=== PATIENT | female | born 1930 | race African-American/Black ===

== ENCOUNTER 2019-03-07 17:38 | Emergency (ER) | payer MEDICARE, OTHER ==
[2019-03-07 18:19] LABS: Base Excess-Venous 0.3 mmol/L (-2.0 to 3.0); Bicarbonate (HCO3v) 26.6 mmol/L (22.0-28.0); CO2 Tension (PvCO2) 48.2 mmHg (40.0-50.0); Chloride 102 mmol/L (98-107); Hemoglobin - Calc 13.1 g/dL (12.0-16.0); Sodium 144 mmol/L (138-145); vO2 Saturation-calc 51.1 % (60.0-85.0)
--- NOTE | 2019-03-07 18:25 | RAD ---
Portable frontal chest radiograph: 03/07/2019 COMPARISON: 01/21/2010 HISTORY: Shortness of breath, dyspnea FINDINGS: There is atherosclerotic calcification of the aortic arch. There is no pneumothorax or pleu ral fluid and no focal consolidation or alveolar edema. There is stable prominence of the cardiac silhouette. IMPRESSION: No acute findings.
[2019-03-07 18:36] LABS: #Eosinphils 0.3 thou/uL (0.0-0.7); #Lymphocytes 2.3 thou/uL (1.20-3.40); #Monocytes 0.9 thou/uL (0.11-0.59); #Neutrophils 3.7 thou/uL (1.40-6.50); %Basophils 0.2 % (0.0-1.0); %Eosinophils 4.7 % (0.0-10.0); %Lymphocytes 31.6 % (21.0-51.0); %Monocytes 12.1 % (0.0-10.0); %Neutrophils 51.5 % (42.0-75.0); Mean Corpuscular HGB CONC 30.1 g/dL (32.0-36.0); Mean Corpuscular Hemoglobin 24.3 pg (27.0-31.0); Mean Corpuscular Volume 80.7 fL (78.0-98.0); Platelet Count 318 thou/uL (130-400); RBC Distribution Width 13.1 % (11.5-14.5); Red Blood Cell (RBC) Count 4.54 mill/uL (4.20-5.40); White Blood Cell (WBC) Count 7.2 thou/uL (4.8-10.8)
[2019-03-07 18:48] LABS: ALT (SGPT) 9 U/L (8-55); AST (SGOT) 12 U/L (5-34); Albumin 3.9 g/dL (3.4-4.8); Alkaline Phosphatase 96 U/L (40-110); Anion Gap 16 mmol/L (10-20); BUN (Urea Nitrogen) 15 mg/dL (9.8-20.1); Bilirubin, Total 0.2 mg/dL (0.2-1.2); Calc. Creatinine Clearance 0 mL/min (70-130); Carbon Dioxide 25 mmol/L (23-31); Chloride 105 mmol/L (98-107); Estimated GFR-MDRD 71; Globulin 4.1 g/dL (2.4-3.5); Glucose 134 mg/dL (83-110); Potassium 4.3 mmol/L (3.5-5.1); Sodium 142 mmol/L (136-145)
== END 2019-03-07 20:47 | disposition home or self-care (01) ==
LOC: ERS 17:38
DX: Z71.1 Person with feared health complaint in whom no diagnosis is made (principal); F03.90 Unspecified dementia, unspecified severity, without behavioral disturbance, psychotic disturbance, mood disturbance, and anxiety; E11.51 Type 2 diabetes mellitus with diabetic peripheral angiopathy without gangrene; K21.9 Gastro-esophageal reflux disease without esophagitis; F31.9 Bipolar disorder, unspecified; F41.9 Anxiety disorder, unspecified; G47.00 Insomnia, unspecified; Z79.899 Other long term (current) drug therapy; Z79.82 Long term (current) use of aspirin
CPT/HCPCS: 36415; 71045; 80053; 82330; 82803; 83880; 84484; 85025; 93005

== ENCOUNTER 2019-06-21 06:25 | Inpatient (IN) | payer MEDICARE, MEDICAID, OTHER ==
[2019-06-21 07:09] LABS: Analyzer IN Cardio ER; Base Excess (BEa) -8.3 mEq/L (-2.0 to +3.0); CO2 Tension 46.8 mmHg (35.0-45.0); Calcium, Ionized 1.05 mmol/L (1.12-1.30); Carboxyhemoglobin (COHb) 0.3 gm% (0.0-3.0); Hemoglobin (Hb) 10.4 g/dL (12.0-16.0); O2 Tension (PaO2), arterial 83.3 mmHg (> 60.0); Potassium - ABG Lab 3.13 mmol/L (3.70-5.30)
[2019-06-21] MEDS ORDERED: Norepinephrine 8 MG/250 ML IVPB SCH (07:15)
[2019-06-21 07:18] LABS: Puncture Site RBA; pH, Arterial 7.23 (7.35-7.45)
[2019-06-21] MEDS ORDERED: Norepinephrine 8 MG/0.9% NS 250 ML ONE (07:30)
[2019-06-21] MEDS ORDERED: Cefepime 2 GM VIAL ONE ×2 (07:34→07:38)
[2019-06-21] MEDS ORDERED: Vancomycin 1 GM/200 ML BAG ONE (07:34)
[2019-06-21] MEDS ORDERED: Fentanyl 20 mcg/ml (100 ml CADD) IV PRN (07:43)
[2019-06-21 07:44] LABS: Hemoglobin 10.4 g/dL (12.0-16.0); Mean Corpuscular HGB CONC 29.4 g/dL (32.0-36.0); Mean Corpuscular Hemoglobin 25.6 pg (27.0-31.0); Platelet Count 277 thou/uL (130-400); RBC Distribution Width 14.7 % (11.5-14.5); Red Blood Cell (RBC) Count 4.08 mill/uL (4.20-5.40); White Blood Cell (WBC) Count 8.4 thou/uL (4.8-10.8)
[2019-06-21] MEDS ORDERED: Fentanyl 100 MCG/2 ML VIAL ONE (08:03)
[2019-06-21 08:05] LABS: ALT (SGPT) 29 U/L (8-55); AST (SGOT) 37 U/L (5-34); Albumin 2.5 g/dL (3.4-4.8); Alkaline Phosphatase 65 U/L (40-110); Anion Gap 14 mmol/L (10-20); BUN (Urea Nitrogen) 15 mg/dL (9.8-20.1); Bilirubin, Total 0.2 mg/dL (0.2-1.2); Calc. Creatinine Clearance 0 mL/min (70-130); Carbon Dioxide 21 mmol/L (23-31); Chloride 122 mmol/L (98-107); Estimated GFR-MDRD 61; Globulin 4.3 g/dL (2.4-3.5); Glucose 170 mg/dL (83-110); Protein, Total 6.8 g/dL (6.0-8.3); Sodium 153 mmol/L (136-145)
[2019-06-21 08:12] LABS: Band 48 % (5-11); Eosinophils 2 % (0-10); Lymphocytes 17 % (21-51); MDiff Complete? YES; Metamyelocyte 2 % (0-0); Monocytes 7 % (0-10); Myelocyte 2 % (0-0); Neutrophil 21 % (42-75); Nucleated RBC 1 % (0); Platelet Morphology Comment Appears Adequate; Reactive Lymphocytes 1 % (0-10); Reflex for Review?? YES; Vacuoles MODERATE
[2019-06-21 08:49] LABS: Bacteria/HPF 4+ HPF (None Seen); Bilirubin Negative (Negative); Blood, Urine Trace (Negative); Clarity Turbid (Clear); Glucose, Urine (Dipstick) Normal (Negative); Leukocyte 500 Leu/uL (Negative); Nitrite 2+ (Negative); Protein, Urine (Dipstick) Negative (Neg-Trace); Squamous Epithelial None Seen HPF (0-3); Urobilinogen Normal mg/dL (Less than 2); WBC/HPF Greater than 50 HPF (0-3)
--- NOTE | 2019-06-21 09:30 | RAD ---
1 VIEW CHEST: Date: 06/21/2019 HISTORY: Respiratory distress. COMPARISON: 03/07/2019. FINDINGS: Endotracheal tube is noted in place with tip overlying T5 vertebral body and above the level of the c brittany. Nasogastric tube is noted in place with tip overlying the distal esophagus. Nasogastric tube s hould be advanced by several centimeters. There are patchy parenchymal as well as interstitial opacit ies seen in left perihilar region which may be related to pneumonia. Small left pleural effusion is p resent. The right lung is clear. Vascular calcifications seen in thoracic aorta. No other interval ch daina. IMPRESSION: 1. Nasogastric tube noted in place; tip overlies distal esophagus. Nasogastric tube should be advanc ed. 2. Endotracheal tube noted in place and above the level of the marco antonio. 3. Left perihilar interstitial and patchy parenchymal opacities, worrisome for pneumonia. Follow-up to resolution is recommended. 4. Small left pleural effusion. POS: [facility]
--- NOTE | 2019-06-21 09:32 | RAD ---
ABDOMEN 1 VIEW: Date: 06/21/2019 HISTORY: Line placement. COMPARISON: None. FINDINGS: A catheter is noted over the right groin and right pelvis with tip projecting over the level of the i nferior aspect of the IVC. Extensive vascular calcifications. IMPRESSION: Right femoral catheter with tip projecting in expected location of the inferior most IVC. POS: [facility]
[2019-06-21] MEDS ORDERED: Ventilator Sedation Protocol 1 EACH FS ONE (10:01)
[2019-06-21] MEDS ORDERED: Dextrose 50% Abboject 50 ML SYRINGE SLOW IVP PRN (10:10)
[2019-06-21] MEDS ORDERED: Dextrose 5% in Water 1,000 ML IV PRN (10:10)
[2019-06-21] MEDS ORDERED: Sodium Chloride 0.9% 1,000 ML IV SCH ×2 (10:15→13:05)
[2019-06-21] MEDS ORDERED: Norepinephrine 8 MG/0.9% NS 250 ML IVPB SCH (10:15)
[2019-06-21] MEDS ORDERED: Propofol BOLUS 1,000 MG/100 ML VIAL IV PRN (10:36)
[2019-06-21] MEDS ORDERED: Propofol 1,000 MG/100 ML VIAL IV PRN (10:36)
[2019-06-21] MEDS ORDERED: fentaNYL Citrate/PF 2,000 MCG in Sodium Chloride 0.9% 60 ML IV SCH (10:36)
[2019-06-21] MEDS ORDERED: Lorazepam 2 MG/ML VIAL SLOW IVP PRN (10:36)
[2019-06-21] MEDS ORDERED: Morphine 2 MG/ML SYRINGE SLOW IVP PRN (10:36)
[2019-06-21] MEDS ORDERED: Fentanyl BOLUS 250 ML IVPB PRN (10:36)
--- NOTE | 2019-06-21 10:52 | HP ---
CHIEF COMPLAINT: Respiratory failure. HISTORY OF PRESENT ILLNESS: The patient is an 88-year-old female, who is a resident of a residential facility. She has a history of peripheral vascular disease, diabetes, and chronic pain syndrome. The patient was picked up by ambulance after she was found to be significantly altered in her mental status. Apparently, the patient is normally awake, alert, and oriented x4 and able to ambulate with a walker. However, today she was noted to have a GCS of 3. Ambulance was activated. On their arrival, the patient's blood pressure was 80/39, pulse 119, and respirations 16. She was intubated in the field. She was started on pressors in the field and had 5 L of IV fluids prior to arrival in the emergency department per the ER records. The patient is currently intubated, sedated, unable to give any additional history. The ER record indicates that she had a fever as well. In the emergency department, the patient has received 125 mL of normal saline per hour along with fentanyl for sedation Levophed for pressor support and vancomycin and cefepime. Her workup thus far is concerning for pneumonia and possible urinary tract infection with severe sepsis. REVIEW OF SYSTEMS: Unobtainable given the patient's intubated status. PAST MEDICAL HISTORY: Obtained from the emergency room record as there are no records from the nursing facility that are locatable at the moment, indicates she has peripheral vascular disease, diabetes mellitus type 2, dementia, chronic pain syndrome, insomnia, generalized weakness, reflux, mobility disturbance, hemorrhoids, hearing loss, and constipation. PAST SURGICAL HISTORY: Tonsillectomy, ectopic . PSYCHIATRIC HISTORY: Shows bipolar disorder, depression, and anxiety. CURRENT MEDICATIONS: Unknown. ALLERGIES: NONE KNOWN. PHYSICAL EXAMINATION: VITAL SIGNS: Most recent set of vital signs; BP was 88/66, pulse 114, respirations 22, temperature is 100.4, and O2 saturation 100% on the ventilator. GENERAL APPEARANCE: The patient is age appropriate. She is sedated, intubated. She has some modest movement of her extremities according to the nurse, who is working with her. She has been moving her extremities at times fairly well. HEENT: She has endotracheal tube in place. HEART: Regular, tachycardic. No murmurs. LUNGS: Clear on the right, diminished with rales more on the left. ABDOMEN: Soft, nondistended, but relatively full feeling is minimally hyperresonant to percussion. Bowel sounds are absent. No palpable masses. EXTREMITIES: There is no cyanosis, clubbing, or edema. She has mottling of the skin peripherally. She is slightly cool to touch. Peripheral pulses are diminished. PSYCHIATRIC: The patient is intubated and sedated. LABORATORY DATA: White count 8.4, hemoglobin 10.4, platelets 277 with 21 neutrophils, 48% bands, 17% lymphocytes. ABG; pH is 7.23, pCO2 is 46.8, and pO2 is 83.3. Sodium 153, potassium is 4.0, chloride 122, CO2 is 21, BUN 15, creatinine is 1.0, glucose is 170, lactic acid is 3.7, calcium is 7.0, AST 37, ALT 29, and alkaline phosphatase 65. Urinalysis shows a turbid urine, specific gravity 1.008, pH of 6, there is trace blood, 2+ nitrites, 500 leukocyte esterase, 7 to 10 red cells, greater than 50 white cells, and 4+ bacteria. Flu screen negative. IMAGING DATA: Chest x-ray shows nasogastric tube in place, tip overlying the distal esophagus and the endotracheal tubes noted in place at the level of marco antonio. There is left perihilar interstitial and patchy parenchymal opacities worrisome for pneumonia and a small left pleural effusion. EKG shows possible junctional tachycardia with right bundle-branch block. IMPRESSION AND PLAN: 1. Severe sepsis with related hypotension. The patient has received significant amount of fluid resuscitation. We will continue with some fluids until her pressure stabilized. Continue her on Levophed. She will be admitted to the ICU. Pulmonary/Critical Care has been consulted and case discussed with them. 2. Pneumonia. The patient appears to have a significant left-sided infiltrate. She has normal white count, but significant left shift and a lymphopenia. This is concerning for possibility of aspiration pneumonia per review by myself and Pulmonary. However, given the current circumstances, a coronavirus test was sent from the emergency department and the patient remains currently in isolation. She will continue with broad-spectrum antibiotics with vancomycin, cefepime, and pulmonary support. 3. Hypernatremia likely due to aggressive initial fluid resuscitation. We will continue to monitor. May ultimately need some hypotonic fluids. 4. Possible urinary tract infection, should be adequately covered with current antibiotic regimen. We will follow up urine cultures. 5. Diabetes mellitus. Accu-Cheks, sliding scale. 6. Disposition. I attempted to call the patient's distribution systems serviceperson, Alena Mantilla. However, I got a voicemail. We will ask the Palliative Care Team to try to reach out to family and help establish goals of care. Job ID: [id number]
[2019-06-21] MEDS: Vasopressin 40 UNIT, Admixture Fee 1 EACH in Sodium Chloride 0.9% 100 ML IV SCH ×2 (11:15→22:59)
[2019-06-21] MEDS ORDERED: EPINEPHrine 1 MG/10 ML Abboject SYRINGE ONE (11:36)
[2019-06-21 11:56] LABS: Actual Bicarbonate (HCO3a) 15.4 mEq/L (22-28); Base Excess (BEa) -12.2 mEq/L (-2.0 to +3.0); CO2 Tension 42.3 mmHg (35.0-45.0); Carboxyhemoglobin (COHb) 0.8 gm% (0.0-3.0); Hemoglobin (Hb) 9.7 g/dL (12.0-16.0); Potassium - ABG Lab 3.97 mmol/L (3.70-5.30)
[2019-06-21 11:57] LABS: ALV-art Gradient 533.125 (0-20); Puncture Site RBA; pH, Arterial 7.18 (7.35-7.45)
[2019-06-21] MEDS ORDERED: methylPREDNISolone Sod Succ/PF 125 MG/2 ML VIAL IVP SCH (12:00)
[2019-06-21] MEDS ORDERED: EPINEPHrine 1 MG, Admixture Fee 1 EACH in Dextrose 5% in Water 250 ML IVPB SCH (12:00)
[2019-06-21] MEDS ORDERED: VANCOMYCIN IVPB PRN (12:03)
--- NOTE | 2019-06-21 12:18 | PDOC.EVN ---
Event Note - Event Note Event Note: I was requested by treating team to provide an opinion re: CPR on this patient. She was admitted earlier today for septic shock and pneumonia. I reviewed the chart. I could not examine the patient because of COVID 19 precautions. She is 88 year old [place] resident, no immediate family. Treating team contacted the number on record, who is her case manager specialist, and was informed there is no MPOA or family. She was picked up at the [place] and intubated in the field. CXR shows pneumonia. She may have a urinary tract infection as well. She was on norepinephrine, now needing a second pressor. Chances of survival are slim to none, even with CPR if initiated. I discussed her case with Dr. Lui and Dr. Bustos. I concur with the treating team not to perform CPR. She remains intubated on ventilatory and pressor support.
--- NOTE | 2019-06-21 13:12 | PDOC.PALCO ---
Palliative Care Consult - Consult Details Requesting Physician: Dr Bustos Reason for Consult: advance directives assistance, other (Assist in location of next of Kin) - Pertinent HPI 88 year old female who is a resident of a halfway facility. Onset of sudden altered mental status, EMS called. Patient base line ambulatory with full orientation. In route she was intubated with initiation of pressors and fluid bolus. Secondary to respiratory presentation treated as R/O Covid 19. Admitted to CCU - Pertinent PMH PVD, DM II, Dementia, Bipolar, Depression - Social History Smoking Status: Unknown if ever smoked Smoking: no tobacco exposure Living Situation: halfway resident - Medications MAR Reviewed: Yes - Allergies Allergies/Adverse Reactions: Allergies Allergy/AdvReac Type Severity Reaction Status Date / Time No Known Allergies Allergy Verified 06/21/19 12:40 - Subjective Intubated, on isolation. - ROS Non Response: due to endotracheal tube, due to mental status - Objective Vital Signs: Vital Signs - Most Recent Temp Pulse Resp BP Pulse Ox 101.1 F H 124 H 23 H 124/50 L 88 L 06/21/19 10:05 06/21/19 10:05 06/21/19 10:05 06/21/19 10:05 06/21/19 10:05 Palliative Performance Scale: 20 - Physical Exam Deviation from normal: Physical exam not performed as Covid 19 ruleout, limiting exposure - Problem List (1) Palliative care encounter Code(s): Z51.5 - ENCOUNTER FOR PALLIATIVE CARE Current Visit: Yes Status: Acute (2) Respiratory failure requiring intubation Code(s): J96.90 - RESPIRATORY FAILURE, UNSP, UNSP W HYPOXIA OR HYPERCAPNIA Current Visit: Yes Status: Acute (3) Sepsis Code(s): A41.9 - SEPSIS, UNSPECIFIED ORGANISM Current Visit: Yes Status: Acute Qualifiers: Sepsis type: Pneumococcus (4) Pneumonia Code(s): J18.9 - PNEUMONIA, UNSPECIFIED ORGANISM Current Visit: Yes Status: Acute - Plan/Recommendations Plan: Patient was placed at a [facility] with assistance by a social worker aide, [phone] Orlando Gregorio Only living known relative as is a sister, in [place], that patient was estranged from was located. Misty [phone] ( number is not accurate for patient sister and unknown last name) Awaiting a phone call back for Karen Gregorio to determine if there are any other resources or contacts she has identified. [45] minutes spent on this encounter with >50% of the time in counseling and coordination of care. Thank you for this very appropriate consult.
[2019-06-21 13:21] LABS: Lactic Acid 8.5 mmol/L (0.5-2.2)
[2019-06-21] MEDS: Dextrose 5% in Water 1,000 ML IV SCH (13:41)
[2019-06-21] MEDS ORDERED: EPINEPHrine 2 MG, Admixture Fee 1 EACH in Dextrose 5% in Water 250 ML IVPB SCH (14:00)
--- NOTE | 2019-06-21 14:39 | CON ---
DATE OF CONSULTATION: 06/21/2019 SERVICE: Pulmonary Medicine. REASON FOR CONSULTATION: ICU patient. HISTORY OF PRESENT ILLNESS: The patient is an 88-year-old female with past medical history significant for cognitive impairment/dementia. She was found down on the morning of presentation in her nursing facility. Ultimately, she was brought to the emergency department. Because she had altered mentation with a GST of 3, and had some respiratory issues, she was put on COVID isolation and intubated to protect her airway. Chest x-ray suggests that she has severe aspiration in the left lung. She cannot provide any additional elements of the history. She appears to have a horrendous septic shock, and is actively attempting to pass away from this condition. From one emergency department to the ICU, she has already received 5 L of fluid in resuscitation. She is maxed on 3 separate pressors, and her blood pressures remained quite marginal. Her saturations on plethysmography are not accurate, and the ABG suggests she is oxygenating adequately, though remains horrendously acidotic, and is failing to compensate appropriately despite the fact that she is on the ventilator. PAST MEDICAL HISTORY: 1. Peripheral vascular disease. 2. Type 2 diabetes mellitus. 3. Dyslipidemia. 4. Dementia. 5. Chronic pain syndrome. 6. Insomnia. 7. Generalized weakness. 8. Gastroesophageal reflux disease. 9. Chronic constipation. 10. History of hemorrhoids. 11. Sensorineural hearing loss. PAST SURGICAL HISTORY: 1. Tonsillectomy. 2. Surgery for ectopic , remote. SOCIAL HISTORY: Negative for current alcohol, tobacco, or illicit drug use. FAMILY HISTORY: Noncontributory. ALLERGIES: NO KNOWN DRUG ALLERGIES. MEDICATIONS: List of her inpatient medications was reviewed and heavily modified. REVIEW OF SYSTEMS: This cannot be obtained as the patient is currently intubated and sedated. PHYSICAL EXAMINATION: VITAL SIGNS: Temperature continues to climb. On presentation, she was at 101, but it has subsequently gone up to 103 degrees Fahrenheit. Pulse 124; blood pressure 124/80; respirations 23; and saturation 94%, on 100% FiO2 and a PEEP of 5. GENERAL: The patient is intubated and sedated. HEENT: Normocephalic, atraumatic. Sclerae are white. Conjunctivae are pink. Oral mucosa is moist without lesions. LUNGS: Extensive rhonchi and crackles are present. It is worse on the left. No prolonged expiratory phase or wheezing is appreciated. HEART: Tachycardic. Regular. ABDOMEN: Distended. Bowel sounds are completely absent. There is no rebound or guarding present. MUSCULOSKELETAL: No cyanosis or clubbing. There is no pitting throughout. She has dry skin. NEUROLOGIC: This is difficult to assess in her current condition. She is not withdrawing from noxious stimuli in all 4 extremities. She is overbreathing the ventilator. She demonstrates a cough with deep suctioning. I have not seen any purposeful activity, but in her current state that does not surprise me. GENITOURINARY: Rich catheter in place. LABORATORY DATA: WBC 8.4, hemoglobin 10.4, and platelets 277,000. Neutrophil count of 21% on top of 48% bands. PH of 7.18, pCO2 of 42, pO2 of 127, corresponding to a saturation of 94%, FiO2 is 100% at that time. Sodium 153, potassium 4.0, bicarb 21, chloride 122, and creatinine 1.04. Liver function studies are essentially unremarkable. Lactate was originally 3.7. Nitrites 2+, white blood cells are very elevated, and bacteria is 4+ in the urine. Influenza A and B are unremarkable. IMAGING DATA: Abdominal x-ray demonstrates femoral line is in the expected region of the inferior vena cava. Nonspecific bowel gas pattern is present. No significant megacolon is noted. Chest x-ray demonstrates no free air under the diaphragm. There is an extensive infiltrate throughout the left lung. Small effusion is likely present on that side as well. Endotracheal tube is in good position. Enteric catheter courses midline below the level of the diaphragm. ASSESSMENT: 1. Acute hypoxic respiratory failure. 2. Septic shock. 3. Urinary tract infection. 4. Healthcare-associated pneumonia, with a dense infiltrate on the left. 5. Acute kidney injury with anuria. 6. Dementia. 7. Hypernatremia. 8. Advanced deconditioning at baseline. DISCUSSION AND PLAN: At this point, the patient is essentially maxed out on 3 separate pressors. We will initiate stress doses of steroids. She is on appropriate antibiotics that should cover both GI, , and lung juan. The likelihood that we are dealing with a COVID is quite low. That being said, in her current state, were she to have a CODE event, chest compressions would be futile. As such, we will not be performing chest compressions moving forward in the event that she has a CODE event. That being said, we will continue to maximize her efforts moving forward to recover her from her acute infection. Multiple ventilator changes have been made, we have adjusted some antibiotics. I believe there may be a gut issue here. That being said, she is completely unstable for pursuing a CT of the abdomen and pelvis. If she does survive the night and come down to 2 separate pressors, we may consider moving forward with a CT of the belly. CRITICAL CARE TIME: 100 minutes. Job ID: [id number]
[2019-06-21] MEDS ORDERED: FLU VACC TS2019-20(65YR UP)/PF 180 MCG/0.5 ML SYRINGE IM ONE (14:45)
[2019-06-21] MEDS ORDERED: Prevnar 13-Val Conj/PF 0.5 ML SYRINGE IM ONE (14:45)
[2019-06-21] MEDS: metroNIDAZOLE 500 MG in Premix Bag 1 BAG IVPB SCH ×2 (15:01→21:16)
[2019-06-21] MEDS: methylPREDNISolone Sod Succ 40 MG VIAL IVP SCH ×2 (17:45→23:00)
[2019-06-21] MEDS: HumaLOG 300 UNITS/3 ML VIAL SC PRN ×2 (18:06→23:27)
[2019-06-21] MEDS: Cefepime 1 GM in Sodium Chloride 0.9% 100 ML IVPB SCH (19:58)
[2019-06-21] MEDS ORDERED: Famotidine/PF 20 mg/2ml Vial SLOW IVP SCH (21:00)
[2019-06-22 04:40] LABS: Phosphorus 2.1 mg/dL (2.3-4.7)
[2019-06-22 04:41] LABS: Anion Gap 18 mmol/L (10-20); BUN (Urea Nitrogen) 21 mg/dL (9.8-20.1); Calc. Creatinine Clearance 40 mL/min (70-130); Calcium 7.6 mg/dL (7.8-10.44); Carbon Dioxide 15 mmol/L (23-31); Chloride 118 mmol/L (98-107); Estimated GFR-MDRD 63; Glucose 157 mg/dL (83-110); Magnesium 1.3 mg/dL (1.6-2.6); Potassium 3.6 mmol/L (3.5-5.1); Sodium 147 mmol/L (136-145)
[2019-06-22 04:44] LABS: Lactic Acid 5.3 mmol/L (0.5-2.2)
[2019-06-22 05:07] LABS: Band 51 % (5-11); Hemoglobin 8.3 g/dL (12.0-16.0); Hypochromia SLIGHT = 6-15 cells (100X) (0-5/hpf); Lymphocytes 16 % (21-51); MDiff Complete? YES; Mean Corpuscular HGB CONC 30.3 g/dL (32.0-36.0); Mean Corpuscular Volume 82.5 fL (78.0-98.0); Mean Platelet Volume 8.7 fL (7.4-10.4); Metamyelocyte 8 % (0-0); Neutrophil 25 % (42-75); Nucleated RBC 1 % (0); Platelet Count 211 thou/uL (130-400); Platelet Morphology Comment Appears Adequate; RBC Distribution Width 14.6 % (11.5-14.5); Red Blood Cell (RBC) Count 3.33 mill/uL (4.20-5.40); White Blood Cell (WBC) Count 16.8 thou/uL (4.8-10.8)
[2019-06-22] MEDS ORDERED: CCU Electrolyte Replacement 1 EACH FS ONE (05:39)
[2019-06-22] MEDS ORDERED: CCU ELECTROLYTE REPLACEMENT PROTOCOL FS PRN (05:41)
[2019-06-22] MEDS ORDERED: Potassium Phosphate 15 MMOL in Sodium Chloride 0.9% 250 ML 250 ML IV PRN (05:41)
[2019-06-22] MEDS ORDERED: Potassium Chloride 40 MEQ in Premix Bag 1 BAG IVPB PRN (05:41)
[2019-06-22] MEDS ORDERED: Potassium Chloride 20 MEQ TAB PO PRN (05:41)
[2019-06-22] MEDS ORDERED: PHOS-NAK 1 PKT PACK PO PRN ×2 (05:41)
[2019-06-22] MEDS ORDERED: Potassium Phosphate 12 MMOL in Sodium Chloride 0.9% 250 ML 250 ML IV PRN (05:41)
[2019-06-22] MEDS ORDERED: Potassium Phosphate 9 MMOL in Sodium Chloride 0.9% 100 ML IVPB PRN (05:41)
[2019-06-22] MEDS ORDERED: Magnesium Oxide 400 MG TAB PO PRN ×2 (05:41)
[2019-06-22] MEDS ORDERED: Magnesium 2 GM/50 ML 2 GM in Premix Bag 1 BAG IVPB PRN (05:41)
[2019-06-22] MEDS ORDERED: Potassium Chloride 40 MEQ in Sodium Chloride 0.9% 250 ML 250 ML IVPB PRN (05:41)
[2019-06-22] MEDS: metroNIDAZOLE 500 MG in Premix Bag 1 BAG IVPB SCH ×3 (05:49→20:30)
[2019-06-22] MEDS: methylPREDNISolone Sod Succ 40 MG VIAL IVP SCH (05:49)
[2019-06-22] MEDS: HumaLOG 300 UNITS/3 ML VIAL SC PRN (05:54)
[2019-06-22 07:35] LABS: Actual Bicarbonate (HCO3a) 16.6 mEq/L (22-28); Base Excess (BEa) -4.9 mEq/L (-2.0 to +3.0); Calcium, Ionized 1.15 mmol/L (1.12-1.30); Carboxyhemoglobin (COHb) 0.2 gm% (0.0-3.0); Hemoglobin (Hb) 9.6 g/dL (12.0-16.0); O2 Tension (PaO2), arterial 91.5 mmHg (> 60.0); Potassium - ABG Lab 3.49 mmol/L (3.70-5.30); pH, Arterial 7.52 (7.35-7.45)
[2019-06-22 07:39] LABS: CO2 Tension 20.8 mmHg (35.0-45.0)
[2019-06-22 07:40] LABS: Puncture Site RRA
[2019-06-22] MEDS ORDERED: Vancomycin 1 GM in Premix Bag 1 BAG IVPB SCH (08:00)
[2019-06-22] MEDS: Cefepime 1 GM in Sodium Chloride 0.9% 100 ML IVPB SCH ×2 (08:35→20:30)
[2019-06-22] MEDS: Enoxaparin Sodium 40 MG/0.4 ML SYRINGE SC SCH (08:36)
[2019-06-22] MEDS ORDERED: Potassium Phosphate 30 MMOL in Sodium Chloride 0.9% 250 ML 250 ML IVPB SCH (09:00)
[2019-06-22] MEDS: Dextrose 5% in Water 1,000 ML IV SCH (09:09)
[2019-06-22] MEDS ORDERED: Magnesium 2 GM/50 ML 2 GM in Premix Bag 1 BAG IVPB SCH (10:15)
--- NOTE | 2019-06-22 13:33 | PDOC.HOSPP ---
- Subjective Encounter Date: 06/22/19 Subjective: Intubated, sedated. - Objective Vital Signs & Weight: Vital Signs (12 hours) Pulse Resp BP Pulse Ox 06/22/19 12:00 12 06/22/19 10:00 13 06/22/19 08:00 17 100 06/22/19 07:41 96 97/62 06/22/19 06:00 17 06/22/19 04:00 17 06/22/19 02:00 17 Weight Admit Weight 145 lb Weight 145 lb Most Recent Monitor Data Heart Rate from ECG 86 NIBP 88/58 NIBP BP-Mean 68 Respiration from ECG 15 SpO2 97 I&O: 06/21/19 06/22/19 06/23/19 06:59 06:59 06:59 Intake Total 1830.8 Output Total 1908 256 Balance -77.2 -256 Result Diagrams: 06/22/19 04:00 06/22/19 04:00 Additional Labs: Accuchecks 06/22/19 06/21/19 06/21/19 11:00 23:16 18:03 POC Glucose 146 H 236 H 329 H Hospitalist ROS - Medication Medications: Active Medications Generic Name Dose Route Start Last Admin Trade Name Freq PRN Reason Stop Dose Admin Enoxaparin Sodium 40 mg 06/22/19 09:00 06/22/19 08:36 Lovenox SC 40 mg 0900 ANKITA Administration Cefepime HCl 1 gm/ Sodium 100 mls @ 200 mls/hr 06/21/19 21:00 06/22/19 08:35 Chloride IVPB 100 mls Q12HR ANKITA Administration Vancomycin HCl 1 gm/ Device 200 mls @ 200 mls/hr 06/22/19 08:00 06/22/19 07: 15 IVPB 200 mls 0800 ANKITA Administration Fentanyl Citrate 2,000 mcg/ 100 mls @ 0 mls/hr 06/21/19 10:36 06/22/19 06:30 Sodium Chloride IV 07/21/19 10:36 100 mls INF ANKITA Administration Protocol Per Protocol Vasopressin 40 unit/ 102 mls @ 0 mls/hr 06/21/19 10:45 06/21/19 22:59 Miscellaneous Medication 1 IV 102 mls each/ Sodium Chloride INF ANKITA Administration Protocol As Directed Dextrose/Water 1,000 mls @ 50 mls/hr 06/21/19 13:15 06/22/19 09:09 D5w IV 1,000 mls .Q20H ANKITA Administration Metronidazole 500 mg/ Device 100 mls @ 100 mls/hr 06/21/19 14:00 06/22/19 05: 49 IVPB 100 mls Q8HR ANKITA Administration Epinephrine 2 mg/ 252 mls @ 0 mls/hr 06/21/19 14:00 06/21/19 14:09 Miscellaneous Medication 1 IVPB 252 mls each/ Dextrose/Water INF ANKITA Administration Protocol Titrate Magnesium Sulfate 2 gm/ Device 50 mls @ 50 mls/hr 06/22/19 05:41 06/22/19 05: 53 IVPB 50 mls ASDIR PRN Administration MAGNESIUM < 1.4 Insulin Human Lispro 0 units 06/21/19 10:10 06/22/19 05:54 Humalog SC 2 unit .MILD SLIDING SCALE PRN Administration Mild Correctional Scale Propofol 1,000 mg 06/21/19 10:36 06/22/19 09:11 Diprivan IV 07/21/19 10:36 1,000 mg INF PRN Administration TO ACHIEVE GOAL RASS Protocol Sodium Chloride 10 ml 06/21/19 09:00 06/22/19 08:36 Flush - Normal Saline IVF 10 ml Q12HR ANKITA Administration - Exam General Appearance: NAD, awake alert Heart: RRR, no murmur, no gallops, no rubs, normal peripheral pulses Respiratory: CTAB, no wheezes, no ronchi, normal chest expansion, no tachypnea, normal percussion, rales (Minimal) Gastrointestinal: soft, non-distended, no palpable masses, no hepatomegaly, no splenomegaly Extremities: no cyanosis, no clubbing, no edema Extremities - other findings: Cool to touch. Less mottled. Psychiatric - other findings: secdated. Hosp A/P (1) Septic shock Code(s): A41.9 - SEPSIS, UNSPECIFIED ORGANISM; R65.21 - SEVERE SEPSIS WITH SEPTIC SHOCK Status: Acute (2) Acute respiratory failure with hypoxia Code(s): J96.01 - ACUTE RESPIRATORY FAILURE WITH HYPOXIA Status: Acute (3) Pneumonia Code(s): J18.9 - PNEUMONIA, UNSPECIFIED ORGANISM Status: Acute (4) Hypernatremia Code(s): E87.0 - HYPEROSMOLALITY AND HYPERNATREMIA Status: Acute (5) UTI (urinary tract infection) Status: Acute (6) Diabetes mellitus Code(s): E11.9 - TYPE 2 DIABETES MELLITUS WITHOUT COMPLICATIONS Status: Acute - Plan Septic Shock: Still requiring pressors, although much decreased. Pneumonia: Continue IV abx with Vanc and Cefepime. Covid test negative. UTI: Ucx growing staph. Unclear if this is culprit, but should be covered with Vanc. Resp Failure: Continues on the vent. Pulmonology managing. Hypernatremia: Improving. Hypomagnesemia: Replete. DM: SSI, glucose monitoring. Dispo: Appreciate PCT. No family contacts. Agree that chest compressions would be futile.
--- NOTE | 2019-06-22 14:20 | PRG ---
DATE OF SERVICE: 06/22/2019 SERVICE: Pulmonary Medicine. INTERVAL HISTORY: The patient has done quite well and survived the night. This has surprised multiple providers. That being said, she is now off two of the three pressors, and she is only on a low dose of norepinephrine at this point. She cannot provide any additional elements of the history, but she is responding appropriately and has been witnessed to move all 4 extremities during sedation holidays. Currently, she is sedated, not interactive. Otherwise, there has been no interval change to her condition. PHYSICAL EXAMINATION: VITAL SIGNS: Afebrile currently with a maximum bladder temperature of 100.4 last overnight. Pulse 86, blood pressure 80/55, respirations 15, saturation 97%, currently on 47% FiO2 and PEEP of 5. GENERAL: The patient is intubated and sedated. HEENT: Normocephalic and atraumatic. Sclerae white. Conjunctivae pink. Oral mucosa is moist without lesions. LUNGS: Decent air entry with rhonchi present. No prolonged expiratory phase or wheezing appreciated. HEART: Normal rate and regular. ABDOMEN: Soft, nontender, nondistended. Bowel sounds positive. MUSCULOSKELETAL: No cyanosis or clubbing. There is no pitting in the bilateral lower extremities. NEUROLOGIC: Grossly nonfocal. LABORATORY DATA: WBC 16.8, hemoglobin 8.3, and platelets 211,000. Band count is 51% on top of 25% neutrophils. PH 7.52, pCO2 of 20.8, pO2 of 91.5. Creatinine 1.00 and gently downtrending, BUN 21, potassium 3.6, sodium has improved from 153 to 147, calcium 7.6. Lactate has improved to 5.3. Magnesium 1.3, phosphorus 2.1. Urinalysis is remarkable for significant pyuria. COVID-19 is unremarkable. Staph aureus is growing in the urine with greater than 100,000 colony-forming units. Blood cultures x2 are unremarkable. Influenza A and B are negative. ASSESSMENT: 1. Acute hypoxic respiratory failure. 2. Septic shock, improving. 3. Urinary tract infection, secondary to Staphylococcus aureus. 4. Healthcare-associated pneumonia with a dense infiltrate on the left. 5. Dementia. 6. Hypernatremia, improving. 7. Advanced deconditioning at baseline. DISCUSSION AND PLAN: We will continue empiric antibiotics for the time being. We will continue D5 water to hopefully gently improve her hypernatremia. Critical Care will follow along, but at this point, we are going to give an additional 24 to 48 hours on the ventilator. Once she clears her inflammatory profile a touch better, we will consider her for extubation, but today is not that day. Critical Care will follow. CRITICAL CARE TIME: 30 minutes. Job ID: [id number]
[2019-06-22] MEDS: Famotidine/PF 20 mg/2ml Vial SLOW IVP SCH (20:32)
[2019-06-23 04:05] LABS: Anion Gap 13 mmol/L (10-20); BUN (Urea Nitrogen) 22 mg/dL (9.8-20.1); Calc. Creatinine Clearance 44 mL/min (70-130); Calcium 8.1 mg/dL (7.8-10.44); Carbon Dioxide 20 mmol/L (23-31); Chloride 116 mmol/L (98-107); Estimated GFR-MDRD 70; Glucose 141 mg/dL (83-110); Potassium 4.8 mmol/L (3.5-5.1); Sodium 144 mmol/L (136-145)
[2019-06-23 04:53] LABS: Band 37 % (5-11); Hemoglobin 8.6 g/dL (12.0-16.0); Lymphocytes 5 % (21-51); MDiff Complete? YES; Mean Corpuscular Hemoglobin 25.5 pg (27.0-31.0); Mean Corpuscular Volume 82.3 fL (78.0-98.0); Mean Platelet Volume 8.5 fL (7.4-10.4); Monocytes 4 % (0-10); Myelocyte 1 % (0-0); Neutrophil 53 % (42-75); Platelet Count 218 thou/uL (130-400); RBC Distribution Width 14.9 % (11.5-14.5); Red Blood Cell (RBC) Count 3.37 mill/uL (4.20-5.40); White Blood Cell (WBC) Count 19.1 thou/uL (4.8-10.8)
[2019-06-23] MEDS: metroNIDAZOLE 500 MG in Premix Bag 1 BAG IVPB SCH ×2 (05:33→13:14)
[2019-06-23] MEDS: Dextrose 5% in Water 1,000 ML IV SCH (05:34)
[2019-06-23] MEDS: Cefepime 1 GM in Sodium Chloride 0.9% 100 ML IVPB SCH ×2 (08:30→20:57)
[2019-06-23] MEDS: Vancomycin 1.5 GRAM/300 ML BAG 1.5 GM in Premix Bag 1 BAG IVPB SCH (09:26)
[2019-06-23] MEDS: Enoxaparin Sodium 40 MG/0.4 ML SYRINGE SC SCH (09:30)
[2019-06-23] MEDS ORDERED: Dextrose 5% in Water 1,000 ML IV SCH (14:44)
--- NOTE | 2019-06-23 14:58 | PRG ---
DATE OF SERVICE: SERVICE: Pulmonary Medicine. INTERVAL HISTORY: The patient is doing really quite well from respiratory standpoint. Kidney function is opened up a little bit. She cannot provide any additional elements of the history. Otherwise, there has been no interval events overnight. She remains a little bit sedated. She is only on 30 of fentanyl, but with a sedation holiday, she is not really waking up too much. She is moving all 4 extremities. PHYSICAL EXAMINATION: VITAL SIGNS: Afebrile, pulse 79, blood pressure 133/83, respirations 14, saturation 100%, currently on 37% FiO2. GENERAL: The patient is awake and alert, in no apparent distress. LUNGS: Good air entry bilaterally without any prolonged expiratory phase or wheezing appreciated. HEART: Normal rate, regular. ABDOMEN: Soft, nontender, and nondistended. Bowel sounds are positive. MUSCULOSKELETAL: No cyanosis or clubbing. There is 1+ pitting throughout. NEUROLOGIC: Grossly nonfocal. LABORATORY DATA: WBC 19.1, hemoglobin 8.6 and gently uptrending, platelets 218, 000. Band counts have improved, 37% on top of 53% neutrophils. Sodium 144, chloride 116. Creatinine 0.92 and gently downtrending. Urine culture is growing Staph aureus, which is sensitive to oxacillin. ASSESSMENT: 1. Acute hypoxic respiratory failure, improving. 2. Septic shock, resolving. 3. Urinary tract infection secondary to methicillin-sensitive Staphylococcus aureus. 4. Healthcare-associated pneumonia with a dense infiltrate on the left. 5. Dementia. 6. Hypernatremia, resolved. 7. Advanced deconditioning at baseline. DISCUSSION AND PLAN: I will repeat a chest x-ray tomorrow morning as well as some laboratories including magnesium and phosphorus. D5 water will be KVO'd. I will initiate feeds. Hopefully, will be ready for extubation in 24 hours, but I would like a touch better definitive control over her volume status. I will give her single dose of Lasix today. Critical care time: 30 minutes. Job ID: [id number] MTDD
--- NOTE | 2019-06-23 15:38 | PDOC.HOSPP ---
- Subjective non-verbal Subjective: Intubated sedated. Does not follow commands. - Objective Vital Signs & Weight: Vital Signs (12 hours) Temp Pulse Resp BP Pulse Ox 06/23/19 15:17 84 141/86 H 06/23/19 14:00 34 H 06/23/19 13:00 79 133/83 06/23/19 12:00 98.0 F 19 06/23/19 10:33 71 133/72 06/23/19 10:00 19 06/23/19 08:00 98.1 F 15 100 06/23/19 07:08 80 127/80 06/23/19 07:00 98.1 F 06/23/19 06:00 16 06/23/19 04:00 97.9 F 13 Weight Admit Weight 145 lb Weight 145 lb Most Recent Monitor Data Heart Rate from ECG 81 NIBP 121/70 NIBP BP-Mean 87 Respiration from ECG 35 SpO2 91 I&O: 06/22/19 06/23/19 06/24/19 06:59 06:59 06:59 Intake Total 1830.8 2393.8 324 Output Total 1908 1096 620 Balance -77.2 1297.8 -296 Result Diagrams: 06/23/19 03:16 06/23/19 03:16 Additional Labs: Accuchecks 06/23/19 06/22/19 06/22/19 12:11 22:14 17:02 POC Glucose 156 H 146 H 157 H Radiology Reviewed by me: Yes Hospitalist ROS - Review of Systems ROS unobtainable: due to endotracheal tube - Medication Medications: Active Medications Generic Name Dose Route Start Last Admin Trade Name Jessica PRN Reason Stop Dose Admin Enoxaparin Sodium 40 mg 06/22/19 09:00 06/23/19 09:30 Lovenox SC 40 mg 0900 ANKITA Administration Famotidine 20 mg 06/22/19 21:00 06/22/19 20:32 Pepcid SLOW IVP 20 mg 2100 ANKITA Administration Norepinephrine Bitartrate 250 mls @ 0 mls/hr 06/21/19 10:15 06/23/19 02:10 Levophed IVPB 250 mls INF ANKITA Administration Protocol Titrate Cefepime HCl 1 gm/ Sodium 100 mls @ 200 mls/hr 06/21/19 21:00 06/23/19 08:30 Chloride IVPB 100 mls Q12HR ANKITA Administration Magnesium Sulfate 2 gm/ Device 50 mls @ 50 mls/hr 06/22/19 05:41 06/22/19 05: 53 IVPB 50 mls ASDIR PRN Administration MAGNESIUM < 1.4 Vancomycin HCl 1.5 gm/ Device 300 mls @ 200 mls/hr 06/23/19 08:00 06/23/19 09 :26 IVPB 300 mls 0800 ANKITA Administration Insulin Human Lispro 0 units 06/21/19 10:10 06/22/19 05:54 Humalog SC 2 unit .MILD SLIDING SCALE PRN Administration Mild Correctional Scale Sodium Chloride 10 ml 06/21/19 09:00 06/23/19 09:31 Flush - Normal Saline IVF 10 ml Q12HR ANKITA Administration - Exam General Appearance: ill appearing Eye: PERRL ENT: normocephalic atraumatic, moist mucosa Neck: supple, symmetric Heart: no murmur, no gallops, no rubs Respiratory: no rales, normal chest expansion, no tachypnea, rhonchi, wheezes Gastrointestinal: soft, non-tender, no guarding, no rigidity Extremities: 1+ LE edema Skin: no rashes Neurological: cranial nerve grossly intact, no focal deficits Neurological - other findings: limited secondary to sedation Musculoskeletal: generalized weakness Psychiatric: not oriented Hosp A/P (1) Acute respiratory failure with hypoxia Code(s): J96.01 - ACUTE RESPIRATORY FAILURE WITH HYPOXIA Status: Acute (2) Diabetes mellitus Code(s): E11.9 - TYPE 2 DIABETES MELLITUS WITHOUT COMPLICATIONS Status: Acute (3) Hypernatremia Code(s): E87.0 - HYPEROSMOLALITY AND HYPERNATREMIA Status: Acute (4) Pneumonia Code(s): J18.9 - PNEUMONIA, UNSPECIFIED ORGANISM Status: Acute (5) Respiratory failure requiring intubation Code(s): J96.90 - RESPIRATORY FAILURE, UNSP, UNSP W HYPOXIA OR HYPERCAPNIA Status: Acute (6) Sepsis Code(s): A41.9 - SEPSIS, UNSPECIFIED ORGANISM Status: Acute Qualifiers: Sepsis type: Pneumococcus (7) Septic shock Code(s): A41.9 - SEPSIS, UNSPECIFIED ORGANISM; R65.21 - SEVERE SEPSIS WITH SEPTIC SHOCK Status: Acute (8) UTI (urinary tract infection) Status: Acute - Plan Plan: intensive care unit pulmonology/critical-care consultation, recommendations appreciated wean vent when able vasoactive medications to maintain mean arterial pressure greater than 65 broad-spectrum antibiotics blood culture urine culture de-escalate to culture and sensitivity as able pain control/sedation continue other home medications as able blood sugar control was short acting insulin G.I. prophylaxis DVT prophylaxis
[2019-06-23] MEDS: Famotidine/PF 20 mg/2ml Vial SLOW IVP SCH (20:59)
[2019-06-24] MEDS: HumaLOG 300 UNITS/3 ML VIAL SC PRN ×4 (04:07→22:16)
[2019-06-24 04:50] LABS: Anion Gap 10 mmol/L (10-20); BUN (Urea Nitrogen) 17 mg/dL (9.8-20.1); Calc. Creatinine Clearance 52 mL/min (70-130); Calcium 8.4 mg/dL (7.8-10.44); Carbon Dioxide 23 mmol/L (23-31); Chloride 118 mmol/L (98-107); Estimated GFR-MDRD 84; Glucose 168 mg/dL (83-110); Magnesium 2.3 mg/dL (1.6-2.6); Potassium 3.4 mmol/L (3.5-5.1); Sodium 148 mmol/L (136-145)
[2019-06-24 04:53] LABS: Phosphorus 1.1 mg/dL (2.3-4.7)
[2019-06-24 05:47] LABS: Band 23 % (5-11); Eosinophils 1 % (0-10); Hypochromia SLIGHT = 6-15 cells (100X) (0-5/hpf); Lymphocytes 13 % (21-51); MDiff Complete? YES; Mean Corpuscular HGB CONC 31.6 g/dL (32.0-36.0); Mean Corpuscular Hemoglobin 25.6 pg (27.0-31.0); Mean Corpuscular Volume 81.1 fL (78.0-98.0); Mean Platelet Volume 8.8 fL (7.4-10.4); Monocytes 3 % (0-10); Neutrophil 60 % (42-75); Platelet Count 225 thou/uL (130-400); RBC Distribution Width 14.6 % (11.5-14.5); Red Blood Cell (RBC) Count 3.14 mill/uL (4.20-5.40); White Blood Cell (WBC) Count 13.3 thou/uL (4.8-10.8)
--- NOTE | 2019-06-24 09:02 | RAD ---
CHEST ONE VIEW: HISTORY: On ventilator. Follow-up evaluation. COMPARISON: 06/21/2019 FINDINGS: Endotracheal tube and nasogastric tube remain in place. The cardiac silhouette is magnified by projec tion. There is increased opacity seen in the retrocardiac region of the left lung base with a mild in crease in left perihilar interstitial densities. The right lung is clear. Vascular calcifications are seen in the thoracic aorta. No other interval change. IMPRESSION: Increased opacity left lung base with mild interstitial prominence left perihilar location. These fin dings may be related to pneumonia or less likely asymmetric pulmonary edema. Continued followup is re commended. POS: OFF
[2019-06-24] MEDS: Vancomycin 1.5 GRAM/300 ML BAG 1.5 GM in Premix Bag 1 BAG IVPB SCH (09:09)
[2019-06-24] MEDS: Enoxaparin Sodium 40 MG/0.4 ML SYRINGE SC SCH (09:14)
[2019-06-24] MEDS: Cefepime 1 GM in Sodium Chloride 0.9% 100 ML IVPB SCH ×2 (09:14→20:38)
--- NOTE | 2019-06-24 12:35 | PRG ---
DATE OF SERVICE: 06/24/2019 SERVICE: Pulmonary Medicine. INTERVAL HISTORY: The patient is doing outstanding from respiratory standpoint. Breathing comfortably. No complaints of chest discomfort, fevers, chills, nausea, or vomiting. Otherwise, there has been no interval change to her condition. She is much more awake and attentive today. She can respond appropriately and is moving all 4 extremities. PHYSICAL EXAMINATION: VITAL SIGNS: Afebrile, pulse 95, blood pressure 120/67, respirations 17, saturation 100%, currently on 31% FiO2 and a PEEP of 5. GENERAL: The patient is awake and alert, in no apparent distress. LUNGS: Wonderful air entry. Dependent crackles are present. There are rhonchi. No prolonged expiratory phase or wheezing is appreciated. HEART: Normal rate, regular. ABDOMEN: Soft, nontender, nondistended. Bowel sounds are positive. MUSCULOSKELETAL: No cyanosis or clubbing. There is diffuse pitting throughout. NEUROLOGIC: Grossly nonfocal. LABORATORY DATA: WBC 13.3, hemoglobin 8.0, and platelets 225,000. Sodium 148, has gently up trended once again. Basic metabolic profile is otherwise unremarkable. Magnesium 2.3, phosphorus 1.1. COVID is negative. Staph aureus is growing in the urine. This is sensitive to methicillin. Blood cultures x2 and influenza A and B are negative. IMAGING: Echocardiogram demonstrates normal ejection fraction, moderate mitral regurgitation, moderate to severe tricuspid regurgitation, and mild pulmonic regurgitation. No obvious valvular abnormalities or vegetations were otherwise identified. ASSESSMENT: 1. Acute hypoxic respiratory failure, resolving. 2. Septic shock, resolved. 3. Urinary tract infection, secondary to MSSA. 4. Healthcare-associated pneumonia with a dense infiltrate on the left. 5. Dementia. 6. Hypernatremia. 7. Advanced deconditioning at baseline. DISCUSSION AND PLAN: Potassium and phosphorus will be replaced today. I will give her an additional dose of Lasix and schedule a daily dose. Because of the phosphorus, I will give her one more day on the mechanical ventilator. Pulmonary/Critical Care will continue to follow along for now. Job ID: [id number]
[2019-06-24] MEDS ORDERED: Potassium Phosphate 30 MMOL in Sodium Chloride 0.9% 250 ML 250 ML IVPB SCH (12:45)
[2019-06-24] MEDS ORDERED: Furosemide 40 MG/4 ML VIAL SLOW IVP SCH (12:45)
[2019-06-24] MEDS: Dextrose 5% in Water 1,000 ML IV SCH (13:19)
--- NOTE | 2019-06-24 16:15 | PDOC.HOSPP ---
- Subjective Encounter Date: 06/24/19 Encounter Time: 15:10 Subjective: f/u for resp failure and HCAP on current Cefepime/Vancomycin and remains on mech ventilation with FIO2 31%. Awakes to name and opens eyes briefly. - Objective Vital Signs & Weight: Vital Signs (12 hours) Temp Pulse Resp Pulse Ox 06/24/19 15:11 110 H 06/24/19 13:07 103 H 06/24/19 10:44 95 06/24/19 10:00 17 06/24/19 08:00 18 96 06/24/19 07:19 93 06/24/19 07:00 99.1 F 06/24/19 06:00 18 Weight Admit Weight 145 lb Weight 145 lb Most Recent Monitor Data Heart Rate from ECG 96 NIBP 120/67 NIBP BP-Mean 84 Respiration from ECG 17 SpO2 100 I&O: 06/23/19 06/24/19 06/25/19 06:59 06:59 06:59 Intake Total 2393.8 1635.7 400 Output Total 1096 1840 300 Balance 1297.8 -204.3 100 Result Diagrams: 06/24/19 04:00 06/24/19 04:00 Additional Labs: Accuchecks 06/24/19 06/24/19 06/23/19 11:42 04:07 22:18 POC Glucose 177 H 171 H 130 H 06/23/19 18:30 POC Glucose 137 H Microbiology 06/21/19 08:21 Urine velazquez catheter Urine Culture - Final Staphylococcus aureus 06/21/19 06:40 Nasal swab Influenza Types A,B Direct EIA - Final 06/21/19 07:52 Venous blood - Right Arm Blood Culture - Preliminary NO GROWTH AT 48 HOURS 06/21/19 07:32 Venous blood - Right Arm Blood Culture - Preliminary NO GROWTH AT 48 HOURS Laboratory Tests 06/21/19 06/21/19 06/21/19 06:37 07:32 07:32 WBC 8.4 Hgb 10.4 L Band Neuts % (Manual) 48 H Sodium 153 H Potassium Phosphorus Magnesium COVID-19 PCR Not Detected 06/22/19 06/22/19 06/22/19 04:00 04:00 04:00 WBC 16.8 H Hgb 8.3 L Band Neuts % (Manual) 51 H Sodium 147 H Potassium 3.6 Phosphorus 2.1 L Magnesium 1.3 L COVID-19 PCR 06/23/19 06/23/19 06/24/19 03:16 03:16 04:00 WBC 19.1 H Hgb 8.6 L Band Neuts % (Manual) 37 H Sodium 144 Potassium 4.8 Phosphorus Magnesium 2.3 COVID-19 PCR 06/24/19 06/24/19 04:00 04:00 WBC Hgb Band Neuts % (Manual) 23 H Sodium Potassium Phosphorus 1.1 L Magnesium COVID-19 PCR Radiology Reviewed by me: Yes (Echo - EF 55-60%, mod MR/ mod-sev TR) EKG Reviewed by me: Yes (Tele - SR) Hospitalist ROS - Medication Medications: Active Medications Generic Name Dose Route Start Last Admin Trade Name Freq PRN Reason Stop Dose Admin Enoxaparin Sodium 40 mg 06/22/19 09:00 06/24/19 09:14 Lovenox SC 40 mg 0900 ANKITA Administration Famotidine 20 mg 06/22/19 21:00 06/23/19 20:59 Pepcid SLOW IVP 20 mg 2100 ANKITA Administration Norepinephrine Bitartrate 250 mls @ 0 mls/hr 06/21/19 10:15 06/23/19 02:10 Levophed IVPB 250 mls INF ANKITA Administration Protocol Titrate Cefepime HCl 1 gm/ Sodium 100 mls @ 200 mls/hr 06/21/19 21:00 06/24/19 09:14 Chloride IVPB 100 mls Q12HR ANKITA Administration Magnesium Sulfate 2 gm/ Device 50 mls @ 50 mls/hr 06/22/19 05:41 06/22/19 05: 53 IVPB 50 mls ASDIR PRN Administration MAGNESIUM < 1.4 Vancomycin HCl 1.5 gm/ Device 300 mls @ 200 mls/hr 06/23/19 08:00 06/24/19 09 :09 IVPB 300 mls 0800 ANKITA Administration Potassium Phosphate 30 mmol/ 260 mls @ 43.333 mls/hr 06/24/19 12:45 06/24/19 13:16 Sodium Chloride IVPB 06/24/19 18:44 260 mls NOW ANKITA Administration Dextrose/Water 1,000 mls @ 50 mls/hr 06/24/19 12:23 06/24/19 13:19 D5w IV 1,000 mls .Q20H ANKITA Administration Insulin Human Lispro 0 units 06/21/19 10:10 06/24/19 13:20 Humalog SC 2 unit .MILD SLIDING SCALE PRN Administration Mild Correctional Scale Miscellaneous Medication 1 pkt 06/22/19 05:41 06/24/19 05:10 Phos-Nak PO 1 pkt TIDPRN PRN Administration FOR PHOS LEVEL 1.0 - 1.8 Potassium Chloride 40 meq 06/22/19 05:41 06/24/19 05:10 K-Dur PO 40 meq ASDIR PRN Administration FOR SERUM K+ 2.5 - 3.5 Sodium Chloride 10 ml 06/21/19 09:00 06/24/19 09:10 Flush - Normal Saline IVF 10 ml Q12HR ANKITA Administration - Exam General - other findings: sedate on mech ventilation Eye: PERRL, anicteric sclera ENT: normocephalic atraumatic, no oropharyngeal lesions ENT - other findings: ETT in place Neck: supple, symmetric, no JVD, no thyromegaly Heart: no gallops, no rubs, normal peripheral pulses Heart - other findings: S1, S2, tachycardic Respiratory - other findings: coarse sounds on L, diminished in bases Gastrointestinal: soft, non-tender, non-distended, normal bowel sounds, no palpable masses Extremities: no cyanosis, no clubbing Skin: normal turgor, no lesions Musculoskeletal: generalized weakness Psychiatric: oriented to person, somnolent, lethargic Hosp A/P (1) Acute respiratory failure with hypoxia Code(s): J96.01 - ACUTE RESPIRATORY FAILURE WITH HYPOXIA Status: Acute Plan: Secondary to #2, continue mech ventilation and wean as clinically indicated (2) Septic shock Code(s): A41.9 - SEPSIS, UNSPECIFIED ORGANISM; R65.21 - SEVERE SEPSIS WITH SEPTIC SHOCK Status: Acute Plan: Improved, continue low-volume IVF's, wean off Levophed gtt (3) HCAP (healthcare-associated pneumonia) Code(s): J18.9 - PNEUMONIA, UNSPECIFIED ORGANISM Status: Acute Plan: Suspected, continue Cefepime/Vancomycin, pulmonary support, mech ventilation (4) Hypernatremia Code(s): E87.0 - HYPEROSMOLALITY AND HYPERNATREMIA Status: Acute Plan: Likely due to dehydration, continue low-volume D5 IVF's, serial Na+ monitoring (5) UTI (urinary tract infection) Status: Acute Plan: Staph spp noted, continue Cefepime IV - Plan continue antibiotics, respiratory therapy, DVT proph w/SCDs Continue critical support Wean mech ventilation as clinically indicated Continue Cefepime/Vancomycin Consider Palliative care consult AM lab: BMP, CBC, Mg++, PO3, Vanc trough PCXR in am
[2019-06-24] MEDS: Famotidine/PF 20 mg/2ml Vial SLOW IVP SCH (20:38)
[2019-06-25] MEDS: HumaLOG 300 UNITS/3 ML VIAL SC PRN ×3 (04:03→17:03)
[2019-06-25 04:41] LABS: Band 7 % (5-11); Eosinophils 1 % (0-10); Hemoglobin 8.2 g/dL (12.0-16.0); Lymphocytes 16 % (21-51); MDiff Complete? YES; Mean Corpuscular Hemoglobin 24.9 pg (27.0-31.0); Mean Corpuscular Volume 80.3 fL (78.0-98.0); Mean Platelet Volume 8.7 fL (7.4-10.4); Monocytes 4 % (0-10); Neutrophil 72 % (42-75); Platelet Count 241 thou/uL (130-400); RBC Distribution Width 14.4 % (11.5-14.5); Target Cells SLIGHT = 2-5 cells (100X) (0-1/hpf); White Blood Cell (WBC) Count 10.2 thou/uL (4.8-10.8)
[2019-06-25 05:07] LABS: Anion Gap 15 mmol/L (10-20); BUN (Urea Nitrogen) 17 mg/dL (9.8-20.1); Calc. Creatinine Clearance 52 mL/min (70-130); Calcium 8.7 mg/dL (7.8-10.44); Carbon Dioxide 21 mmol/L (23-31); Chloride 117 mmol/L (98-107); Estimated GFR-MDRD 84; Glucose 197 mg/dL (83-110); Phosphorus 2.2 mg/dL (2.3-4.7); Potassium 3.7 mmol/L (3.5-5.1); Sodium 149 mmol/L (136-145)
[2019-06-25 08:00] LABS: Vancomycin, Trough 14.9 ug/mL
[2019-06-25] MEDS: Vancomycin 1.5 GRAM/300 ML BAG 1.5 GM in Premix Bag 1 BAG IVPB SCH (08:31)
[2019-06-25] MEDS: Enoxaparin Sodium 40 MG/0.4 ML SYRINGE SC SCH (08:32)
[2019-06-25] MEDS: Cefepime 1 GM in Sodium Chloride 0.9% 100 ML IVPB SCH ×2 (08:33→20:38)
[2019-06-25] MEDS ORDERED: Furosemide 40 MG/4 ML VIAL SLOW IVP SCH (09:00)
[2019-06-25] MEDS ORDERED: Potassium Phosphate 30 MMOL in Sodium Chloride 0.9% 500 ML IVPB SCH (09:45)
[2019-06-25] MEDS ORDERED: Furosemide 20 MG/2 ML VIAL SLOW IVP SCH (09:45)
[2019-06-25] MEDS: Dextrose 5% in Water 1,000 ML IV SCH (11:04)
--- NOTE | 2019-06-25 11:13 | PRG ---
DATE OF SERVICE: 06/25/2019 SERVICE: Pulmonary Medicine. INTERVAL HISTORY: The patient is doing outstanding from respiratory standpoint. She is awake and alert. She appears to be comfortable. She is following some simple commands. Otherwise, there has been no interval change to her condition. Overnight, her oxygen requirements have continued to improve. She did not get any sedation for the past 2 days. She is cool, collected for the most part. PHYSICAL EXAMINATION: VITAL SIGNS: T-max of 100.9. Pulse 95. Blood pressure 108/65, respirations 22, saturation 100%, currently on 30% FiO2 and a PEEP of 5. GENERAL: The patient is awake and alert, in no apparent distress. LUNGS: With good air entry bilaterally. Crackles are present. No prolonged expiratory phase or wheezing is appreciated. HEART: Normal rate regular. ABDOMEN: Soft, nontender, nondistended. Bowel sounds are positive. MUSCULOSKELETAL: No cyanosis or clubbing. There is diffuse pitting throughout. NEUROLOGIC: Grossly nonfocal. LABORATORY DATA: WBC 10.2, hemoglobin 8.2, platelets 241,000. Lymphocytes are 16%, monocytes 4%. Both of these are up trending, band count is precipitously falling down to 7% at this point. Creatinine 0.78. Sodium 149 and gently up trending, chloride 117. Basic metabolic profile is otherwise unremarkable. Phosphorus 2.2. Urine culture is growing MSSA. Blood cultures x2 and influenza are otherwise unremarkable. ASSESSMENT: 1. Acute hypoxic respiratory failure, resolving. 2. Septic shock, resolved. 3. Urinary tract infection secondary to methicillin-sensitive Staphylococcus aureus. 4. Healthcare-associated pneumonia with a dense infiltrate on the left. 5. Dementia. 6. Hypernatremia. 7. Hypophosphatemia. 8. Advanced deconditioning at baseline. DISCUSSION AND PLAN: We will replace the phosphorus and potassium today. I will give her an additional dose of Lasix. We will increase the free water to 60 per hour over the next 24 hours. I will try to keep her net negative while dropping that sodium level. Critical Care will continue to follow along while the patient remains in this location. If she meets criteria, extubation will be considered following a spontaneous breathing trial. CRITICAL CARE TIME: 30 minutes. Job ID: [id number]
--- NOTE | 2019-06-25 14:29 | PDOC.HOSPP ---
- Subjective Encounter Date: 06/25/19 Encounter Time: 13:45 Subjective: f/u for resp failure, HCAP with septic shock on Cefepime/Vancomycin now extubated this am. Remains somnolent and receiving TF's. - Objective Vital Signs & Weight: Vital Signs (12 hours) Temp Pulse Resp BP Pulse Ox 06/25/19 12:00 98.4 F 100 06/25/19 08:25 123 H 24 H 100 06/25/19 08:00 99.3 F 23 H 06/25/19 07:38 100 06/25/19 07:14 98 06/25/19 06:00 22 H 06/25/19 04:00 99.6 F 32 H 06/25/19 02:40 111 H 117/76 Weight Admit Weight 145 lb Weight 139 lb 1.787 oz Most Recent Monitor Data Heart Rate from ECG 105 NIBP 134/90 NIBP BP-Mean 104 Respiration from ECG 32 SpO2 95 I&O: 06/24/19 06/25/19 06/26/19 06:59 06:59 06:59 Intake Total 1635.7 2382.4 300 Output Total 1840 3617 1600 Balance -204.3 -1234.6 -1300 Result Diagrams: 06/25/19 03:55 06/25/19 03:55 Additional Labs: Accuchecks 06/25/19 06/25/19 06/24/19 08:17 04:02 22:18 POC Glucose 195 H 204 H 197 H 06/24/19 17:46 POC Glucose 171 H Microbiology 06/21/19 08:21 Urine velazquez catheter Urine Culture - Final Staphylococcus aureus 06/21/19 06:40 Nasal swab Influenza Types A,B Direct EIA - Final 06/21/19 07:52 Venous blood - Right Arm Blood Culture - Preliminary NO GROWTH AT 48 HOURS 06/21/19 07:32 Venous blood - Right Arm Blood Culture - Preliminary NO GROWTH AT 48 HOURS Laboratory Tests 06/21/19 06/21/19 06/21/19 06:37 07:32 07:32 WBC 8.4 Hgb 10.4 L Band Neuts % (Manual) 48 H Sodium 153 H Potassium Phosphorus Magnesium Vancomycin Trough COVID-19 PCR Not Detected 06/22/19 06/22/19 06/22/19 04:00 04:00 04:00 WBC 16.8 H Hgb 8.3 L Band Neuts % (Manual) 51 H Sodium 147 H Potassium 3.6 Phosphorus 2.1 L Magnesium 1.3 L Vancomycin Trough COVID-19 PCR 06/23/19 06/23/19 06/24/19 03:16 03:16 04:00 WBC 19.1 H Hgb 8.6 L Band Neuts % (Manual) 37 H Sodium 144 148 H Potassium 4.8 Phosphorus Magnesium 2.3 Vancomycin Trough COVID-19 PCR 06/24/19 06/24/19 06/25/19 04:00 04:00 03:55 WBC 13.3 H Hgb 8.0 L Band Neuts % (Manual) 23 H Sodium Potassium Phosphorus 1.1 L Magnesium 2.0 Vancomycin Trough COVID-19 PCR 06/25/19 06/25/19 06/25/19 03:55 03:55 07:18 WBC Hgb Band Neuts % (Manual) 7 Sodium Potassium Phosphorus 2.2 L Magnesium Vancomycin Trough 14.9 COVID-19 PCR EKG Reviewed by me: Yes (Tele - A-fib in low 100's) Hospitalist ROS - Medication Medications: Active Medications Generic Name Dose Route Start Last Admin Trade Name Freq PRN Reason Stop Dose Admin Enoxaparin Sodium 40 mg 06/22/19 09:00 06/25/19 08:32 Lovenox SC 40 mg 0900 ANKITA Administration Norepinephrine Bitartrate 250 mls @ 0 mls/hr 06/21/19 10:15 06/23/19 02:10 Levophed IVPB 250 mls INF ANKITA Administration Protocol Titrate Cefepime HCl 1 gm/ Sodium 100 mls @ 200 mls/hr 06/21/19 21:00 06/25/19 08:33 Chloride IVPB 100 mls Q12HR ANKITA Administration Vancomycin HCl 1.5 gm/ Device 300 mls @ 200 mls/hr 06/23/19 08:00 06/25/19 08 :31 IVPB 300 mls 0800 ANKITA Administration Potassium Phosphate 30 mmol/ 510 mls @ 83.3 mls/hr 06/25/19 09:45 06/25/19 10 :35 Sodium Chloride IVPB 06/25/19 15:53 510 mls 0945 ANKITA Administration Dextrose/Water 1,000 mls @ 75 mls/hr 06/25/19 09:38 06/25/19 11:04 D5w IV 1,000 mls .[id number] ANKITA Administration Insulin Human Lispro 0 units 06/21/19 10:10 06/25/19 08:40 Humalog SC 2 unit .MILD SLIDING SCALE PRN Administration Mild Correctional Scale Sodium Chloride 10 ml 06/21/19 09:00 06/25/19 08:31 Flush - Normal Saline IVF 10 ml Q12HR ANKITA Administration - Exam General Appearance: NAD General - other findings: somnolent, minimally responsive to name/voice Eye: PERRL, anicteric sclera ENT: normocephalic atraumatic, no oropharyngeal lesions Neck: supple, symmetric, no JVD, no thyromegaly Heart: no rubs, normal peripheral pulses, irregular Heart - other findings: S1, S2 Respiratory: CTAB, no wheezes, normal chest expansion Respiratory - other findings: scattered rhonchi Gastrointestinal: soft, non-tender, non-distended, normal bowel sounds Extremities: no cyanosis, no clubbing, no edema Skin: normal turgor, no lesions Neurological: no new deficit Musculoskeletal: generalized weakness Psychiatric: flat affect, somnolent, lethargic Hosp A/P (1) Acute respiratory failure with hypoxia Code(s): J96.01 - ACUTE RESPIRATORY FAILURE WITH HYPOXIA Status: Acute Plan: s/p intubation and now extubated 06/25/19, continue pulmonary support as outlined below (2) Septic shock Code(s): A41.9 - SEPSIS, UNSPECIFIED ORGANISM; R65.21 - SEVERE SEPSIS WITH SEPTIC SHOCK Status: Acute Plan: Resolving, continue Cefepime/Vancomycin with suspected HCAP and UTI with staph spp (3) HCAP (healthcare-associated pneumonia) Code(s): J18.9 - PNEUMONIA, UNSPECIFIED ORGANISM Status: Acute Plan: Continue Cefepime/Vancomycin, pulmonary support, O2 PRN (4) Hypernatremia Code(s): E87.0 - HYPEROSMOLALITY AND HYPERNATREMIA Status: Acute Plan: Worsening, increase free-H2O, serial Na+ monitoring (5) UTI (urinary tract infection) Status: Acute Plan: Staph spp isolated, continue Cefepime - Plan continue antibiotics, PT/OT, social welfare clerk, respiratory therapy, DVT proph w/ SCDs Continue critical support Extubated 06/25/19 Continue Cefepime/Vancomycin Consider Palliative care consult Nutritional support with TF's AM lab: BMP, Mg++, PO3, Vanc trough
[2019-06-25] MEDS: Famotidine 20 MG TAB PO SCH (20:40)
[2019-06-26] MEDS: Dextrose 5% in Water 1,000 ML IV SCH ×3 (00:50→21:30)
[2019-06-26] MEDS: HumaLOG 300 UNITS/3 ML VIAL SC PRN ×4 (00:51→18:05)
[2019-06-26 05:20] LABS: Anion Gap 16 mmol/L (10-20); BUN (Urea Nitrogen) 14 mg/dL (9.8-20.1); Calc. Creatinine Clearance 49 mL/min (70-130); Carbon Dioxide 22 mmol/L (23-31); Chloride 110 mmol/L (98-107); Estimated GFR-MDRD 83; Glucose 236 mg/dL (83-110); Phosphorus 3.3 mg/dL (2.3-4.7); Potassium 4.6 mmol/L (3.5-5.1); Sodium 143 mmol/L (136-145)
[2019-06-26] MEDS: Vancomycin 1.5 GRAM/300 ML BAG 1.5 GM in Premix Bag 1 BAG IVPB SCH (09:55)
[2019-06-26] MEDS: Enoxaparin Sodium 40 MG/0.4 ML SYRINGE SC SCH (09:56)
[2019-06-26] MEDS: Cefepime 1 GM in Sodium Chloride 0.9% 100 ML IVPB SCH ×2 (09:58→21:36)
--- NOTE | 2019-06-26 11:57 | PDOC.HOSPP ---
- Subjective Encounter Date: 06/26/19 Encounter Time: 11:55 Subjective: f/u for HCAP, sepsis on current Cefepime/Vancomycin. Receiving TF's with Glucerna 1.2 @ 55ml/h. - Objective Vital Signs & Weight: Vital Signs (12 hours) Temp 06/26/19 04:00 98.8 F 06/26/19 00:00 98.7 F Weight Admit Weight 145 lb Weight 139 lb 1.787 oz Most Recent Monitor Data Heart Rate from ECG 123 NIBP 157/116 NIBP BP-Mean 129 Respiration from ECG 32 SpO2 100 I&O: 06/25/19 06/26/19 06/27/19 06:59 06:59 06:59 Intake Total 2382.4 3274 Output Total 3617 3395 Balance -1234.6 -121 Result Diagrams: 06/25/19 03:55 06/26/19 04:25 Additional Labs: Accuchecks 06/26/19 06/26/19 06/25/19 04:26 00:51 16:59 POC Glucose 261 H 242 H 203 H Laboratory Tests 06/26/19 06/26/19 04:25 04:25 Calcium 9.0 Phosphorus 3.3 Magnesium 2.2 EKG Reviewed by me: Yes (Tele - A-fib in 120's) Hospitalist ROS - Medication Medications: Active Medications Generic Name Dose Route Start Last Admin Trade Name Freq PRN Reason Stop Dose Admin Enoxaparin Sodium 40 mg 06/22/19 09:00 06/26/19 09:56 Lovenox SC 40 mg 0900 ANKITA Administration Famotidine 20 mg 06/25/19 21:00 06/25/19 20:40 Pepcid PO 20 mg 2100 ANKITA Administration Norepinephrine Bitartrate 250 mls @ 0 mls/hr 06/21/19 10:15 06/23/19 02:10 Levophed IVPB 250 mls INF ANKITA Administration Protocol Titrate Cefepime HCl 1 gm/ Sodium 100 mls @ 200 mls/hr 06/21/19 21:00 06/26/19 09:58 Chloride IVPB 100 mls Q12HR ANKITA Administration Vancomycin HCl 1.5 gm/ Device 300 mls @ 200 mls/hr 06/23/19 08:00 06/26/19 09 :55 IVPB 300 mls 0800 ANKITA Administration Dextrose/Water 1,000 mls @ 75 mls/hr 06/25/19 09:38 06/26/19 11:43 D5w IV 1,000 mls .[id number] ANKITA Administration Insulin Human Lispro 0 units 06/21/19 10:10 06/26/19 04:51 Humalog SC 4 unit .MILD SLIDING SCALE PRN Administration Mild Correctional Scale Sodium Chloride 10 ml 06/21/19 09:00 06/26/19 09:56 Flush - Normal Saline IVF 10 ml Q12HR ANKITA Administration - Exam General Appearance: awake alert General - other findings: tracks briefly ENT: normocephalic atraumatic, no oropharyngeal lesions Neck: supple, symmetric, no JVD, no thyromegaly Heart: no murmur, no gallops, no rubs, normal peripheral pulses, irregular Heart - other findings: S1, S2 tachycardic Respiratory: no rales, no ronchi Respiratory - other findings: diminished in bases Gastrointestinal: soft, non-tender, non-distended, normal bowel sounds, no palpable masses Extremities: no cyanosis, no clubbing, no edema Skin: normal turgor, no lesions Neurological - other findings: bed bound, moves upper extremities randomly Musculoskeletal: generalized weakness Psychiatric: flat affect, somnolent, lethargic Hosp A/P (1) Atrial fibrillation with RVR Code(s): I48.91 - UNSPECIFIED ATRIAL FIBRILLATION Status: Acute Plan: ? new-onset, start Cardizem gtt 10mg/h for rate-control strategy, Echo with EF 55-60%, obtain accurate home med list (2) Acute respiratory failure with hypoxia Code(s): J96.01 - ACUTE RESPIRATORY FAILURE WITH HYPOXIA Status: Acute [facility], remains on room air currently (3) Septic shock Code(s): A41.9 - SEPSIS, UNSPECIFIED ORGANISM; R65.21 - SEVERE SEPSIS WITH SEPTIC SHOCK Status: Acute Plan: Resolving, continue Cefepime/Vancomycin (4) HCAP (healthcare-associated pneumonia) Code(s): J18.9 - PNEUMONIA, UNSPECIFIED ORGANISM Status: Acute Plan: See above, pulmonary support, continue Cefepime/Vancomycin (5) Hypernatremia Code(s): E87.0 - HYPEROSMOLALITY AND HYPERNATREMIA Status: Acute Plan: Improved, continue D5 IV and monitor Na+ trend (6) UTI (urinary tract infection) Status: Acute Plan: Staph spp noted, continue Cefepime - Plan continue antibiotics, hospital social worker, speech therapy, respiratory therapy, DVT proph w/SCDs Continue critical support Extubated 06/25/19 Continue Cefepime/Vancomycin Consider Palliative care consult Nutritional support with Glucerna 1.2 @ 55ml/h Start Cardizem gtt 10mg/h AM lab: BMP, CBC, Mg++, PO3, Vanc trough
[2019-06-26] MEDS: Diltiazem 125 MG in Sodium Chloride 0.9% 100 ML IVPB SCH ×2 (12:19→21:59)
[2019-06-26] MEDS ORDERED: Pancrelipase DR 12000 1 CAP FS PRN (13:14)
[2019-06-26] MEDS ORDERED: Sodium Bicarbonate Tab 325 MG TAB PER TUBE PRN (13:14)
[2019-06-26] MEDS ORDERED: Metoprolol Tartrate 25 MG TAB PO SCH ×2 (16:15→21:00)
--- NOTE | 2019-06-26 16:26 | PRG ---
DATE OF SERVICE: 06/26/2019 SERVICE: Pulmonary Medicine. INTERVAL HISTORY: The patient is doing fine from respiratory standpoint. She was extubated safely yesterday. This morning, she is back on 2 L nasal cannula. It is not clear whether or not she needs this. She cannot provide really any additional elements of the history currently. She is getting closer to euvolemia. She still has D5 water running at 75 an hour. PHYSICAL EXAMINATION: VITAL SIGNS: Afebrile; pulse 123; blood pressure 157/116; respirations 32; and saturation 100%, currently on 2 L nasal cannula. GENERAL: The patient is awake and alert, in no apparent distress. LUNGS: Decent air entry. Dependent crackles are minimal. HEART: Normal rate, regular. ABDOMEN: Soft, nontender, and nondistended. Bowel sounds are positive. MUSCULOSKELETAL: No cyanosis or clubbing. There is trace pitting in bilateral lower extremities. NEUROLOGIC: Grossly nonfocal. LABORATORY DATA: Magnesium 2.2, phosphorus 3.3. Basic metabolic profile is otherwise unremarkable with an improving chloride to 110, sodium of 143, potassium 4.6. Staph aureus is growing in the urine. Blood cultures x2 and influenza A and B are unremarkable. ASSESSMENT: 1. Acute hypoxic respiratory failure, resolved. 2. Septic shock, resolved. 3. Urinary tract infection secondary to methicillin-sensitive Staphylococcus aureus. 4. Healthcare-associated pneumonia with a dense infiltrate on the left. 5. Dementia. 6. Hypernatremia, resolved. 7. Hypophosphatemia, resolved. 8. Advanced deconditioning at baseline. DISCUSSION AND PLAN: Since the patient has cleared for sepsis profile, her blood pressures firmed up, we will get her back on her p.o. blood pressure medications and rate control medications. Lasix will be discontinued. D5 water will be KVO. At this point, the patient is stable for transition out of the ICU. She has no further requirements for inpatient Pulmonary or Critical Care opinion, and I will sign off. Please call with additional questions or concerns through time. Job ID: [id number]
[2019-06-26] MEDS ORDERED: Metoprolol Tartrate 25 MG TAB PER TUBE SCH (17:30)
[2019-06-26] MEDS: Famotidine 20 MG TAB PO SCH (21:36)
[2019-06-27 04:25] LABS: Band 5 % (5-11); Eosinophils 2 % (0-10); Hemoglobin 9.4 g/dL (12.0-16.0); Lymphocytes 12 % (21-51); MDiff Complete? YES; Mean Corpuscular HGB CONC 31.1 g/dL (32.0-36.0); Mean Corpuscular Hemoglobin 24.9 pg (27.0-31.0); Mean Corpuscular Volume 79.9 fL (78.0-98.0); Mean Platelet Volume 8.7 fL (7.4-10.4); Monocytes 13 % (0-10); Neutrophil 68 % (42-75); Nucleated RBC 1 % (0); Platelet Count 319 thou/uL (130-400); RBC Distribution Width 14.3 % (11.5-14.5); Red Blood Cell (RBC) Count 3.78 mill/uL (4.20-5.40); White Blood Cell (WBC) Count 11.2 thou/uL (4.8-10.8)
[2019-06-27 04:28] LABS: Anion Gap 14 mmol/L (10-20); BUN (Urea Nitrogen) 12 mg/dL (9.8-20.1); Calc. Creatinine Clearance 54 mL/min (70-130); Calcium 8.8 mg/dL (7.8-10.44); Carbon Dioxide 20 mmol/L (23-31); Chloride 105 mmol/L (98-107); Estimated GFR-MDRD Greater than 90; Glucose 241 mg/dL (83-110); Potassium 3.9 mmol/L (3.5-5.1); Sodium 135 mmol/L (136-145)
[2019-06-27] MEDS: Dextrose 5% in Water 1,000 ML IV SCH (05:15)
[2019-06-27] MEDS: HumaLOG 300 UNITS/3 ML VIAL SC PRN ×3 (05:29→16:57)
[2019-06-27] MEDS: Cefepime 1 GM in Sodium Chloride 0.9% 100 ML IVPB SCH ×2 (07:20→21:06)
[2019-06-27] MEDS: Vancomycin 1.5 GRAM/300 ML BAG 1.5 GM in Premix Bag 1 BAG IVPB SCH (07:20)
[2019-06-27] MEDS: Metoprolol Tartrate 25 MG TAB PER TUBE SCH ×2 (07:21→21:06)
[2019-06-27] MEDS: Enoxaparin Sodium 40 MG/0.4 ML SYRINGE SC SCH (07:21)
[2019-06-27] MEDS: Diltiazem 125 MG in Sodium Chloride 0.9% 100 ML IVPB SCH (11:15)
--- NOTE | 2019-06-27 11:57 | PDOC.HOSPP ---
- Subjective Encounter Date: 06/27/19 Encounter Time: 11:50 Subjective: f/u for sepsis with HCAP on Cefepime/Vancomycin. Nursing reports pt agitated and requiring soft restraints. Remains on Cardizem gtt with rate-controlled A- fib in 80's. - Objective Vital Signs & Weight: Vital Signs (12 hours) Temp Pulse Resp BP Pulse Ox 06/27/19 11:29 98.6 F 99 24 H 144/76 H 97 06/27/19 08:39 100.0 F H 79 20 131/92 H 94 L 06/27/19 08:01 100 06/27/19 08:00 97.4 F L 06/27/19 07:24 100 06/27/19 06:00 98.9 F Weight Admit Weight 145 lb Weight 139 lb 1.787 oz Most Recent Monitor Data Heart Rate from ECG 86 NIBP 152/84 NIBP BP-Mean 106 Respiration from ECG 33 SpO2 100 I&O: 06/26/19 06/27/19 06/28/19 06:59 06:59 06:59 Intake Total 3274 3567.2 30 Output Total 3395 3365 290 Balance -121 202.2 -260 Result Diagrams: 06/27/19 03:48 06/27/19 03:48 Additional Labs: Accuchecks 06/27/19 06/26/19 06/26/19 10:59 22:55 17:41 POC Glucose 204 H 166 H 211 H 06/26/19 11:50 POC Glucose 204 H Microbiology 06/21/19 08:21 Urine velazquez catheter Urine Culture - Final Staphylococcus aureus 06/21/19 06:40 Nasal swab Influenza Types A,B Direct EIA - Final 06/21/19 07:52 Venous blood - Right Arm Blood Culture - Preliminary NO GROWTH AT 48 HOURS 06/21/19 07:32 Venous blood - Right Arm Blood Culture - Preliminary NO GROWTH AT 48 HOURS Laboratory Tests 06/21/19 06/21/19 06/21/19 06:37 07:32 07:32 WBC 8.4 Hgb 10.4 L Band Neuts % (Manual) 48 H Sodium 153 H Potassium Calcium Phosphorus Magnesium Vancomycin Trough COVID-19 PCR Not Detected 06/22/19 06/22/19 06/22/19 04:00 04:00 04:00 WBC 16.8 H Hgb 8.3 L Band Neuts % (Manual) 51 H Sodium 147 H Potassium 3.6 Calcium Phosphorus 2.1 L Magnesium 1.3 L Vancomycin Trough COVID-19 PCR 06/23/19 06/23/19 06/24/19 03:16 03:16 04:00 WBC 19.1 H Hgb 8.6 L Band Neuts % (Manual) 37 H Sodium 144 148 H Potassium 4.8 Calcium Phosphorus Magnesium 2.3 Vancomycin Trough COVID-19 PCR 06/24/19 06/24/19 06/25/19 04:00 04:00 03:55 WBC 13.3 H Hgb 8.0 L Band Neuts % (Manual) 23 H Sodium Potassium Calcium Phosphorus 1.1 L Magnesium 2.0 Vancomycin Trough COVID-19 PCR 06/25/19 06/25/19 06/25/19 03:55 03:55 07:18 WBC Hgb Band Neuts % (Manual) 7 Sodium Potassium Calcium Phosphorus 2.2 L Magnesium Vancomycin Trough 14.9 COVID-19 PCR 06/26/19 06/26/19 04:25 04:25 WBC Hgb Band Neuts % (Manual) Sodium Potassium Calcium 9.0 Phosphorus 3.3 Magnesium 2.2 Vancomycin Trough COVID-19 PCR EKG Reviewed by me: Yes (Tele - A-fib in 80's) Hospitalist ROS - Medication Medications: Active Medications Generic Name Dose Route Start Last Admin Trade Name Freq PRN Reason Stop Dose Admin Enoxaparin Sodium 40 mg 06/22/19 09:00 06/27/19 07:21 Lovenox SC 40 mg 0900 ANKITA Administration Famotidine 20 mg 06/25/19 21:00 06/26/19 21:36 Pepcid PO 20 mg 2100 ANKITA Administration Cefepime HCl 1 gm/ Sodium 100 mls @ 200 mls/hr 06/21/19 21:00 06/27/19 07:20 Chloride IVPB 100 mls Q12HR ANKITA Administration Vancomycin HCl 1.5 gm/ Device 300 mls @ 200 mls/hr 06/23/19 08:00 06/27/19 07 :20 IVPB 300 mls 0800 ANKITA Administration Diltiazem HCl 125 mg/ Sodium 125 mls @ 10 mls/hr 06/26/19 12:15 06/27/19 11: 15 Chloride IVPB 125 mls INF ANKITA Administration Protocol 10 MG/HR Dextrose/Water 1,000 mls @ 0 mls/hr 06/26/19 16:13 06/27/19 05:15 D5w IV 1,000 mls .Q0M ANKITA Administration KVO Insulin Human Lispro 0 units 06/21/19 10:10 06/27/19 11:20 Humalog SC 3 unit .MILD SLIDING SCALE PRN Administration Mild Correctional Scale Metoprolol Tartrate 25 mg 06/27/19 09:00 06/27/19 07:21 Lopressor PER TUBE 25 mg BID ANKITA Administration Sodium Chloride 10 ml 06/21/19 09:00 06/27/19 08:45 Flush - Normal Saline IVF 10 ml Q12HR ANKITA Administration - Exam General Appearance: NAD, awake alert Eye: PERRL, anicteric sclera ENT: normocephalic atraumatic, no oropharyngeal lesions ENT - other findings: NGT in place Neck: supple, symmetric, no JVD, no thyromegaly Heart: no gallops, no rubs, normal peripheral pulses, irregular, II/IV Heart - other findings: S1, S2 Respiratory: no wheezes, no rales, no tachypnea Respiratory - other findings: diminished in bases Gastrointestinal: soft, non-tender, non-distended, normal bowel sounds, no palpable masses Extremities: no cyanosis, no clubbing, no edema Skin: normal turgor, no lesions Neurological: no new deficit Neurological - other findings: moves all extremities Musculoskeletal: normal tone, generalized weakness Psychiatric: oriented to person Hosp A/P (1) Atrial fibrillation with RVR Code(s): I48.91 - UNSPECIFIED ATRIAL FIBRILLATION Status: Acute Plan: Rate improved, d/c Cardizem gtt, continue Metoprolol 25mg BID, consider anticoagulation but high risk for complications given advanced age and current anemia (2) Acute respiratory failure with hypoxia Code(s): J96.01 - ACUTE RESPIRATORY FAILURE WITH HYPOXIA Status: Acute Plan: Continue O2 supplementation PRN (3) Septic shock Code(s): A41.9 - SEPSIS, UNSPECIFIED ORGANISM; R65.21 - SEVERE SEPSIS WITH SEPTIC SHOCK Status: Acute Plan: Resolved (4) HCAP (healthcare-associated pneumonia) Code(s): J18.9 - PNEUMONIA, UNSPECIFIED ORGANISM Status: Acute Plan: Continue Cefepime/Vancomycin, holding Vanc due to elevated level, repeat Vanc trough in 12h (5) Hypernatremia Code(s): E87.0 - HYPEROSMOLALITY AND HYPERNATREMIA Status: Acute Plan: Resolving (6) UTI (urinary tract infection) Status: Acute Plan: Staph spp, continue Cefepime - Plan continue antibiotics, rn social work, speech therapy, respiratory therapy, DVT proph w/SCDs Stable currently Extubated 06/25/19 Continue Cefepime/Vancomycin, repeat Vanc level in 12h Consider Palliative care consult Nutritional support with Glucerna 1.2 @ 55ml/h, QUALITY CONTROL LAB TECH consult for ? dysphagia D/C Cardizem gtt Stool guaiac, likely not a candidate for anticoagulation due to anemia/advanced age/fall risk AM lab: BMP, CBC, Vanc trough
[2019-06-27 12:03] LABS: Vancomycin, Trough 41.2 ug/mL
[2019-06-27] MEDS: Famotidine 20 MG TAB PO SCH (21:06)
[2019-06-28 05:26] LABS: Anion Gap 11 mmol/L (10-20); BUN (Urea Nitrogen) 19 mg/dL (9.8-20.1); Calc. Creatinine Clearance 48 mL/min (70-130); Calcium 9.1 mg/dL (7.8-10.44); Carbon Dioxide 21 mmol/L (23-31); Chloride 108 mmol/L (98-107); Estimated GFR-MDRD 82; Glucose 239 mg/dL (83-110); Potassium 3.9 mmol/L (3.5-5.1); Sodium 136 mmol/L (136-145)
[2019-06-28 06:11] LABS: Anisocytosis SLIGHT = 6-15 cells (100X) (0-5/hpf); Band 12 % (5-11); Eosinophils 5 % (0-10); Lymphocytes 14 % (21-51); MDiff Complete? YES; Mean Corpuscular HGB CONC 30.8 g/dL (32.0-36.0); Mean Corpuscular Hemoglobin 24.5 pg (27.0-31.0); Mean Corpuscular Volume 79.5 fL (78.0-98.0); Mean Platelet Volume 8.4 fL (7.4-10.4); Monocytes 7 % (0-10); Neutrophil 62 % (42-75); Platelet Count 336 thou/uL (130-400); Platelet Morphology Comment Appears Adequate; Red Blood Cell (RBC) Count 3.67 mill/uL (4.20-5.40); White Blood Cell (WBC) Count 10.5 thou/uL (4.8-10.8)
[2019-06-28 07:42] LABS: Vancomycin, Trough 14.2 ug/mL
[2019-06-28] MEDS: Cefepime 1 GM in Sodium Chloride 0.9% 100 ML IVPB SCH ×2 (08:56→21:37)
[2019-06-28] MEDS: Vancomycin 1.5 GRAM/300 ML BAG 1.5 GM in Premix Bag 1 BAG IVPB SCH (08:56)
[2019-06-28] MEDS: HumaLOG 300 UNITS/3 ML VIAL SC PRN ×2 (08:57→11:43)
[2019-06-28] MEDS: Enoxaparin Sodium 40 MG/0.4 ML SYRINGE SC SCH (08:57)
[2019-06-28] MEDS: Metoprolol Tartrate 25 MG TAB PER TUBE SCH ×2 (08:57→21:42)
--- NOTE | 2019-06-28 09:51 | PDOC.HOSPP ---
- Subjective Encounter Date: 06/28/19 Encounter Time: 09:46 Subjective: awake , answers all queries with a negative - Objective Vital Signs & Weight: Vital Signs (12 hours) Temp Pulse Resp BP Pulse Ox 06/28/19 07:14 98.1 F 92 19 142/87 H 99 06/28/19 03:27 97.4 F L 94 20 142/76 H 93 L Weight Admit Weight 145 lb Weight 137 lb 3.2 oz Most Recent Monitor Data Heart Rate from ECG 86 NIBP 152/84 NIBP BP-Mean 106 Respiration from ECG 33 SpO2 100 I&O: 06/27/19 06/28/19 06/29/19 06:59 06:59 06:59 Intake Total 3567.2 1385 30 Output Total 3365 2715 Balance 202.2 -1330 30 Result Diagrams: 06/28/19 04:24 06/28/19 04:24 Additional Labs: Accuchecks 06/28/19 06/27/19 06/27/19 04:35 22:10 16:42 POC Glucose 249 H 203 H 204 H 06/27/19 10:59 POC Glucose 204 H Hospitalist ROS - Medication Medications: Active Medications Generic Name Dose Route Start Last Admin Trade Name Freq PRN Reason Stop Dose Admin Enoxaparin Sodium 40 mg 06/22/19 09:00 06/28/19 08:57 Lovenox SC 40 mg 0900 ANKITA Administration Famotidine 20 mg 06/25/19 21:00 06/27/19 21:06 Pepcid PO 20 mg 2100 ANKITA Administration Cefepime HCl 1 gm/ Sodium 100 mls @ 200 mls/hr 06/21/19 21:00 06/28/19 08:56 Chloride IVPB 100 mls Q12HR ANKITA Administration Vancomycin HCl 1.5 gm/ Device 300 mls @ 200 mls/hr 06/23/19 08:00 06/28/19 08 :56 IVPB 300 mls 0800 ANKITA Administration Dextrose/Water 1,000 mls @ 0 mls/hr 06/26/19 16:13 06/27/19 05:15 D5w IV 1,000 mls .Q0M ANKITA Administration KVO Insulin Human Lispro 0 units 06/21/19 10:10 06/28/19 08:57 Humalog SC 3 unit .MILD SLIDING SCALE PRN Administration Mild Correctional Scale Metoprolol Tartrate 25 mg 06/27/19 09:00 06/28/19 08:57 Lopressor PER TUBE 25 mg BID ANKITA Administration Sodium Chloride 10 ml 06/21/19 09:00 06/28/19 08:57 Flush - Normal Saline IVF 10 ml Q12HR ANKITA Administration - Exam General Appearance: awake alert ENT - other findings: feeding tube Neck: no JVD Heart: no murmur, irregular Respiratory - other findings: coarse BS on left Gastrointestinal: soft, non-tender, normal bowel sounds Extremities: no edema Hosp A/P (1) Acute respiratory failure with hypoxia Code(s): J96.01 - ACUTE RESPIRATORY FAILURE WITH HYPOXIA Status: Acute (2) Atrial fibrillation with RVR Code(s): I48.91 - UNSPECIFIED ATRIAL FIBRILLATION Status: Chronic (3) HCAP (healthcare-associated pneumonia) Code(s): J18.9 - PNEUMONIA, UNSPECIFIED ORGANISM Status: Acute (4) Respiratory failure requiring intubation Code(s): J96.90 - RESPIRATORY FAILURE, UNSP, UNSP W HYPOXIA OR HYPERCAPNIA Status: Resolved (5) Septic shock Code(s): A41.9 - SEPSIS, UNSPECIFIED ORGANISM; R65.21 - SEVERE SEPSIS WITH SEPTIC SHOCK Status: Acute (6) UTI (urinary tract infection) Status: Acute Qualifiers: Urinary tract infection type: site unspecified (7) Anemia Code(s): D64.9 - ANEMIA, UNSPECIFIED Status: Acute Qualifiers: Anemia type: unspecified type Qualified Code(s): D64.9 - Anemia, unspecified - Plan consider transition to po meds speech for swallowing cont selected home meds cont enteral nutriton anemia LEWIS
[2019-06-28 10:56] LABS: Iron 51 ug/dL (50-170); Iron Binding Capacity, Total 284 mcg/dL (265-497)
--- NOTE | 2019-06-28 14:18 | RAD ---
Modified barium swallow HISTORY: Dysphagia. Feeding difficulties. FINDINGS: Exam was performed in conjunction with speech pathology with multiple consistencies. Video review is available and demonstrates nasogastric tube in place. With all consistencies, there is early spill to the level of the valleculae and piriform sinuses. Aft er initiation of swallowing, there is good clearance of contrast. Deep penetration with most consistencies. Aspiration with spontaneous coughing of the patient with initial sips of thin liquid. Delayed residue from the mouth was seen at times to accumulate within the valleculae and piriform sin uses. Esophagus below the level of the hypopharynx was not evaluated. Please see separate detailed report f rom speech pathology.
[2019-06-28] MEDS: Dextrose 5% in Water 1,000 ML IV SCH (21:41)
[2019-06-28] MEDS: Famotidine 20 MG TAB PO SCH (21:42)
[2019-06-28] MEDS: metFORMIN 500 MG TAB PO SCH (21:42)
[2019-06-28] MEDS: Acetaminophen 650 MG Suppository PR PRN (21:42)
[2019-06-29] MEDS: Acetaminophen 650 MG Suppository PR PRN (01:28)
[2019-06-29 04:53] LABS: Anion Gap 11 mmol/L (10-20); BUN (Urea Nitrogen) 19 mg/dL (9.8-20.1); Calc. Creatinine Clearance 52 mL/min (70-130); Calcium 8.8 mg/dL (7.8-10.44); Carbon Dioxide 22 mmol/L (23-31); Chloride 109 mmol/L (98-107); Estimated GFR-MDRD 90; Glucose 186 mg/dL (83-110); Potassium 3.7 mmol/L (3.5-5.1); Sodium 138 mmol/L (136-145)
[2019-06-29] MEDS: Cefepime 1 GM in Sodium Chloride 0.9% 100 ML IVPB SCH (09:32)
[2019-06-29] MEDS: Enoxaparin Sodium 40 MG/0.4 ML SYRINGE SC SCH (09:32)
[2019-06-29] MEDS: Metoprolol Tartrate 25 MG TAB PER TUBE SCH ×2 (09:32→20:37)
[2019-06-29] MEDS: metFORMIN 500 MG TAB PO SCH ×2 (09:33→20:37)
[2019-06-29] MEDS: Vancomycin 1.5 GRAM/300 ML BAG 1.5 GM in Premix Bag 1 BAG IVPB SCH (09:39)
[2019-06-29] MEDS: Cefdinir 300 MG CAP PO SCH (10:25)
[2019-06-29] MEDS: HumaLOG 300 UNITS/3 ML VIAL SC PRN (11:30)
--- NOTE | 2019-06-29 12:07 | PDOC.HOSPP ---
- Subjective Encounter Date: 06/29/19 Encounter Time: 11:59 Subjective: expresses no complaints. diet speech - Objective Vital Signs & Weight: Vital Signs (12 hours) Temp Pulse Resp BP Pulse Ox 06/29/19 11:34 98.3 F 75 18 131/68 97 06/29/19 08:18 99.1 F 71 20 126/60 97 06/29/19 03:24 98.3 F 69 20 126/80 95 06/29/19 00:42 98 Weight Admit Weight 145 lb Weight 136 lb 12.8 oz Most Recent Monitor Data Heart Rate from ECG 86 NIBP 152/84 NIBP BP-Mean 106 Respiration from ECG 33 SpO2 100 I&O: 06/28/19 06/29/19 06/30/19 06:59 06:59 06:59 Intake Total 1385 1515 Output Total 2715 1700 Balance -1330 -185 Result Diagrams: 06/28/19 04:24 06/29/19 04:16 Additional Labs: Accuchecks 06/29/19 06/29/19 06/29/19 10:45 05:59 01:22 POC Glucose 250 H 183 H 200 H 06/28/19 16:16 POC Glucose 175 H Hospitalist ROS - Medication Medications: Active Medications Generic Name Dose Route Start Last Admin Trade Name Freq PRN Reason Stop Dose Admin Acetaminophen 650 mg 06/21/19 15:32 06/29/19 01:28 Tylenol ND 650 mg Q6H PRN Administration Headache/Fever or Pain Cefdinir 600 mg 06/29/19 10:00 06/29/19 10:25 Omnicef PO 600 mg 1000 ANKITA Administration Enoxaparin Sodium 40 mg 06/22/19 09:00 06/29/19 09:32 Lovenox SC 40 mg 0900 ANKITA Administration Famotidine 20 mg 06/25/19 21:00 06/28/19 21:42 Pepcid PO 20 mg 2100 ANKITA Administration Dextrose/Water 1,000 mls @ 0 mls/hr 06/26/19 16:13 06/28/19 21:41 D5w IV 1,000 mls .Q0M ANKITA Administration KVO Insulin Human Lispro 0 units 06/21/19 10:10 06/29/19 11:30 Humalog SC 3 unit .MILD SLIDING SCALE PRN Administration Mild Correctional Scale Metformin HCl 500 mg 06/28/19 21:00 06/29/19 09:33 Glucophage PO 500 mg BID ANKITA Administration Metoprolol Tartrate 25 mg 06/27/19 09:00 06/29/19 09:32 Lopressor PER TUBE 25 mg BID ANKITA Administration Sodium Chloride 10 ml 06/21/19 09:00 06/29/19 09:51 Flush - Normal Saline IVF 10 ml Q12HR ANKITA Administration - Exam General Appearance: awake alert Neck: no JVD Heart: no murmur, irregular Respiratory: CTAB Gastrointestinal: soft, normal bowel sounds Extremities: no edema Hosp A/P (1) Acute respiratory failure with hypoxia Code(s): J96.01 - ACUTE RESPIRATORY FAILURE WITH HYPOXIA Status: Acute (2) Atrial fibrillation with RVR Code(s): I48.91 - UNSPECIFIED ATRIAL FIBRILLATION Status: Chronic (3) HCAP (healthcare-associated pneumonia) Code(s): J18.9 - PNEUMONIA, UNSPECIFIED ORGANISM Status: Acute (4) Respiratory failure requiring intubation Code(s): J96.90 - RESPIRATORY FAILURE, UNSP, UNSP W HYPOXIA OR HYPERCAPNIA Status: Resolved (5) Septic shock Code(s): A41.9 - SEPSIS, UNSPECIFIED ORGANISM; R65.21 - SEVERE SEPSIS WITH SEPTIC SHOCK Status: Acute (6) UTI (urinary tract infection) Status: Acute Qualifiers: Urinary tract infection type: site unspecified (7) Anemia Code(s): D64.9 - ANEMIA, UNSPECIFIED Status: Acute Qualifiers: Anemia type: unspecified type Qualified Code(s): D64.9 - Anemia, unspecified - Plan transition to po medx diet per speech tx DC iv fluids cont metformin, metoprolol, ASA probable DC in AM
--- NOTE | 2019-06-29 13:28 | EKG ---
Test Reason : Blood Pressure : / mmHG Vent. Rate : 110 BPM Atrial Rate : 110 BPM P-R Int : 092 ms QRS Dur : 122 ms QT Int : 386 ms P-R-T Axes : -69 -88 010 degrees QTc Int : 522 ms Unusual P axis and short NH, probable junctional tachycardia and Premature ventricular complexes or F usion complexes Left axis deviation Right bundle branch block Inferior infarct , age undetermined Abnormal ECG Reconfirmed by JULIA CABRAL ([id number]), makeup editor ANGELA ALVES ([id number]) on 06/29/2019 1:27:34 PM Referred By: Confirmed By:JULIA Robison
[2019-06-29 14:17] VITALS: BMI 22.7
[2019-06-29] MEDS ORDERED: Divalproex Sodium 250 MG (DR) TAB PO SCH (15:00)
[2019-06-29] MEDS ORDERED: Divalproex Sodium 125 mg Sprinkle Capsule PO SCH (15:15)
[2019-06-29] MEDS: Divalproex Sodium 125 mg Sprinkle Capsule PO SCH (20:36)
[2019-06-29] MEDS: Famotidine 20 MG TAB PO SCH (20:37)
[2019-06-30] MEDS ORDERED: Albuterol Sulfate 1.25 MG/3 ML NEB NEB PRN (02:00)
[2019-06-30 04:45] LABS: Anion Gap 12 mmol/L (10-20); BUN (Urea Nitrogen) 14 mg/dL (9.8-20.1); Calc. Creatinine Clearance 55 mL/min (70-130); Calcium 8.9 mg/dL (7.8-10.44); Carbon Dioxide 18 mmol/L (23-31); Chloride 114 mmol/L (98-107); Estimated GFR-MDRD Greater than 90; Glucose 138 mg/dL (83-110); Potassium 4.1 mmol/L (3.5-5.1); Sodium 140 mmol/L (136-145)
[2019-06-30] MEDS ORDERED: Aspirin 81 mg Enteric Coated Tablet PO SCH (09:00)
[2019-06-30] MEDS: Cefdinir 300 MG CAP PO SCH (09:01)
[2019-06-30] MEDS: metFORMIN 500 MG TAB PO SCH (09:01)
[2019-06-30] MEDS: Divalproex Sodium 125 mg Sprinkle Capsule PO SCH (09:01)
[2019-06-30] MEDS: Metoprolol Tartrate 25 MG TAB PER TUBE SCH (09:01)
[2019-06-30] MEDS: Enoxaparin Sodium 40 MG/0.4 ML SYRINGE SC SCH (09:02)
[2019-06-30 11:58] VITALS: BP 126/65; TEMP 98.1
[2019-06-30] MEDS: HumaLOG 300 UNITS/3 ML VIAL SC PRN (12:58)
--- NOTE | 2019-06-30 13:56 | DIS ---
DATE OF ADMISSION: 06/21/2019 DATE OF DISCHARGE: 06/30/2019 PRIMARY CARE PROVIDER: Dr. Noe Castañeda. DISPOSITION: Discharged back to [facility]. FINAL DIAGNOSES: Acute respiratory failure with hypoxemia, sepsis with shock syndrome, pneumonia, hypernatremia, urinary tract infection, atrial fibrillation, diabetes mellitus type 2, septic shock. DISCHARGE MEDICATIONS: 1. Metformin 500 mg twice a day. 2. Multivitamin daily. 3. Albuterol nebulizer 0.63 mg q.4 hours p.r.n. 4. Exelon patch 13.3 topical daily. 5. Memantine hydrochloride extended release 28 mg p.o. h.s. 6. Depakote 500 mg p.o. t.i.d. 7. Celexa 40 mg a day. 8. Aspirin 81 mg a day. 9. Metoprolol 25 mg twice a day. 10. Pepcid 20 mg a day. 11. Omnicef 600 mg a day for 7 more days. ALLERGIES: NO KNOWN DRUG ALLERGIES. DIET: Diabetic, thickened liquids. CODE STATUS: Intubate only. PENDING AT TIME OF DISCHARGE: Nothing. HOSPITAL COURSE: The patient admitted to the Hospitalist Service through [facility]. She presented with respiratory failure, had a blood pressure of 80/39, pulse 119, and respirations 16. She was intubated on the field, started on pressors, received 5 L of IV fluids prior to arrival. She was placed in the Intensive Care Unit with diagnosis of severe sepsis and related hypotension. She was continued on Levophed. The patient had a left-sided infiltrate with a neutrophilia and a left shift. Coronavirus test was done. She was initially hypernatremic. She was seen in consultation by Dr. Romario Lui, Pulmonology Intensive Care; Mitali Deutsch, Palliative Care. Echocardiogram revealed EF of 55% to 60%, sclerotic aortic valve, moderate to severe tricuspid regurgitation. Urine culture grew Staph aureus, methicillin sensitive. Blood cultures were no growth. Influenza was negative. COVID test was negative. The patient was treated with broad-spectrum antibiotics. On 06/24/2019, she was awake, alert, moving extremities. Hypoxic respiratory failure was resolving. Her septic shock had resolved. She had a urinary tract infection with MSSA. On 06/24, received spontaneous breathing trial. At that point, white count was down to 10.2, hemoglobin was 8.2, platelet count is 241,000. Sodium was 149, potassium 3.7, BUN and creatinine were normal. Blood sugars were in the 200 range. After seven days, she was transitioned off IV antibiotics, onto cefdinir. She is awake and alert. She underwent a modified barium swallow, which demonstrated aspiration with thin liquids. Speech therapy recommended honey thickened liquids. The patient was placed on that. She is tolerating her diet well. Her vital signs at this point , blood pressure 131/71, respirations 22 with a 94 sat on room air, and temperature 98.5. Cardiorespiratory exam is unremarkable. She is considered stable at this time for transfer back to [facility]. Recommended she receive six more days of Omnicef at the current dose. Additional diagnoses during hospital stay included hypophosphatemia and hypomagnesemia, which were treated. She also had lactic acidosis, which resolved during her hospital stay. Job ID: [id number] [facility]
== END 2019-06-30 13:24 | DRG 871 ==
LOC: ERS 06:25 → CCU 07:17 → 2NO 06-27 08:37
PROVIDERS: ADMIT Internal Medicine; ATTEND Internal Medicine
PROC: 8E0ZXY6 Isolation (ICD-10-PCS; principal; 2019-06-21)
PROC: 5A1945Z Respiratory Ventilation, 24-96 Consecutive Hours (ICD-10-PCS; 2019-06-21)
PROC: 3E033XZ Introduction of Vasopressor into Peripheral Vein, Percutaneous Approach (ICD-10-PCS; 2019-06-21)
DX: A40.3 Sepsis due to Streptococcus pneumoniae (principal); R65.21 Severe sepsis with septic shock; J96.01 Acute respiratory failure with hypoxia; J69.0 Pneumonitis due to inhalation of food and vomit; E87.0 Hyperosmolality and hypernatremia; N39.0 Urinary tract infection, site not specified; N17.9 Acute kidney failure, unspecified; E87.2 Acidosis; Z51.5 Encounter for palliative care; R40.2431 Glasgow coma scale score 3-8, in the field [EMT or ambulance]; I73.9 Peripheral vascular disease, unspecified; E11.9 Type 2 diabetes mellitus without complications; G89.4 Chronic pain syndrome; F03.90 Unspecified dementia, unspecified severity, without behavioral disturbance, psychotic disturbance, mood disturbance, and anxiety; G47.00 Insomnia, unspecified; K21.9 Gastro-esophageal reflux disease without esophagitis; F31.9 Bipolar disorder, unspecified; F41.9 Anxiety disorder, unspecified; E78.5 Hyperlipidemia, unspecified; R53.81 Other malaise; D64.9 Anemia, unspecified; I08.2 Rheumatic disorders of both aortic and tricuspid valves; B95.61 Methicillin susceptible Staphylococcus aureus infection as the cause of diseases classified elsewhere; E83.42 Hypomagnesemia; E83.39 Other disorders of phosphorus metabolism; I48.91 Unspecified atrial fibrillation; Z90.89 Acquired absence of other organs; Z20.828 Contact with and (suspected) exposure to other viral communicable diseases
CPT/HCPCS: 36415; 36416; 36556; 51702; 71045; 74018; 74230; 80048; 80053; 80202; 81003; 81015; 82274; 82607; 82746; 82805; 83540; 83550; 83605; 83735; 84100; 85007; 85025; 85027; 85060; 87040; 87077; 87086; 87186; 87804; 93005; 93306; 94002; 94003; 94760; 96365; 96367; 96368; 99292; C1769; J0171; J0692; J0694; J1650; J1940; J2704; J2920; J2930; J3010; J3370; J3475; J3490; J7050; J7070; S0028; U0001